=== PATIENT | female | born 1955 | race American Indian/Alaskan Native ===

== ENCOUNTER 2022-09-23 13:32 | Outpatient (CLI) | payer MEDICARE, SELFPAY ==
--- NOTE | 2022-09-23 13:30 | DI.RAD_ITS ---
Exam(s) XR KNEE RT 3V AP,LAT,YUSUF EXAM: XR KNEE RT 3V AP,LAT,YUSUF CLINICAL HISTORY: Rt knee pain, M25.561, suspect OA. TECHNIQUE: 2D digital imaging was performed. Three views. COMPARISON: No exams were available for comparison FINDINGS: There is severe narrowing of the lateral femoral tibial joint space and prominent periarticular spurr ing, sclerosis and subchondral cyst formation. There is mild valgus angulation. Degenerative change s are also noted to a lesser extent at the patellofemoral joint. IMPRESSION: Severe degenerative changes lateral femoral tibial joint. DATA REPOSITORY: RADIATION DOSE DELIVERED:
--- NOTE | 2022-09-23 13:30 | DI.RAD_ITS ---
Exam(s) XR KNEE LT 3V AP,LAT,YUSUF EXAM: XR KNEE LT 3V AP,LAT,YUSUF CLINICAL HISTORY: Lt knee pain, M25.562, suspect OA. TECHNIQUE: 2D digital imaging was performed. Three views. COMPARISON: CR XR KNEE RT 3V AP,LAT,YUSUF from 09/23/2022 FINDINGS: There are severe degenerative changes of the medial femoral tibial joint space. There is obliteratio n of the joint space, prominent periarticular spurring, sclerosis as well as flattening of the medial femoral condyle and medial tibial plateau. This is a stable benign appearing smoothly marginated cassie ny density at the medial aspect of the joint. There is varus angulation. Spurring is also noted at the lateral femoral tibial joint which shows compensatory widening. There is also spurring at the pa tellofemoral joint. There is a smoothly marginated peripherally calcified rounded lesion in the dist al femoral meta diaphysis. Findings could represent an old healed fibrous cortical defect however th ey to the appearance is not typical. Further evaluation with CT and/or MRI may be helpful for furthe r evaluation. IMPRESSION: Severe degenerative changes of the medial femoral tibial joint. Circumscribed peripherally calcified lesion in the distal femoral metadiaphysis. Recommend further e valuation with MRI and/or CT. Unexpected findings DATA REPOSITORY: RADIATION DOSE DELIVERED:
--- NOTE | 2022-09-23 13:30 | DI.RAD_ITS ---
Exam(s) XR HIP PELVIS ADULT BL EXAM: XR HIP PELVIS ADULT BL CLINICAL HISTORY: Rt hip pain, M25.551, Lt hip pain, M25.552, suspect OA. TECHNIQUE: 2D digital imaging was performed. Three views. COMPARISON: CR LUMBAR SPINE COMPLETE from 09/08/2016 FINDINGS: BONES: No acute fracture is present. No bony destructive lesion is seen. JOINTS: No dislocation present. Mild joint space narrowing and mild periarticular spurring of the rig ht hip. Moderate joint space narrowing of the left hip with mild to moderate periarticular spurring. Degenerative changes also noted in the SI joints and lower lumbar spine. SOFT TISSUE: Normal. IMPRESSION: Degenerative changes of both hips, left greater than right. DATA REPOSITORY: RADIATION DOSE DELIVERED:
== END 2022-09-23 13:52 ==
LOC: DI 13:32
PROVIDERS: PCP Nurse Practitioner Adult Health; Visit Provider Nurse Practitioner Adult Health
DX: M25.551 Pain in right hip (principal); M25.552 Pain in left hip; M25.561 Pain in right knee; M25.562 Pain in left knee; M17.0 Bilateral primary osteoarthritis of knee; M25.862 Other specified joint disorders, left knee; M16.0 Bilateral primary osteoarthritis of hip
CPT/HCPCS: 73521; 73562

== ENCOUNTER 2022-10-11 00:32 | Outpatient (CLI) | payer MEDICARE, SELFPAY ==
--- NOTE | 2022-10-11 10:15 | DI.NM_ITS ---
Exam(s) NM BONE SCAN WHOLE BODY GRP EXAM: NM BONE SCAN WHOLE BODY GRP CLINICAL HISTORY: ? bony lesion,abnl xry of knee,r93.6. TECHNIQUE: Injected Dose: 25 mCi Tc-99m MDP Delayed Images: 2-3 hours. COMPARISON: CR XR KNEE RT 3V AP,LAT,YUSUF from 09/23/2022 CR XR KNEE LT 3V AP,LAT,YUSUF from 09/23/2022 CR XR HIP PELVIS ADULT BL from 09/23/2022 FINDINGS: Symmetric axial uptake. Bilateral renal excretion is identified. Focus of increased activity noted in the medial distal femoral metaphysis. This corresponds to the m ostly sclerotic lesion seen on plain films. Markedly increased activity seen in the medial femoral tibial joint space of the left knee and latera l femoral tibial joint space of the right knee consistent with degenerative changes noted on recent p pam films. Other areas of increased activity seen in both ankles, likely secondary to degenerative changes. Mil dly increased activity is noted at the region of the superior acetabula, also likely reflecting degen erative change. Scoliosis is noted in the lumbar spine. Focus of increased activity noted at the 1s t carpal metacarpal joint of the left hand. IMPRESSION: 1. Sclerotic lesion on x-ray shows increased radiotracer uptake on bone scan. 2. Multiple sites of degenerative change, greatest in both knees. DATA REPOSITORY:
== END 2022-10-11 00:52 ==
LOC: DI 00:32
PROVIDERS: PCP Nurse Practitioner Adult Health; Visit Provider Nurse Practitioner Adult Health
DX: R93.6 Abnormal findings on diagnostic imaging of limbs (principal)
CPT/HCPCS: 78306

== ENCOUNTER 2022-10-22 01:50 | Outpatient (CLI) | payer MEDICARE, SELFPAY ==
--- NOTE | 2022-10-22 08:00 | DI.MRI_ITS ---
Exam(s) MR LOWER JOINT LT WO/W EXAM: MR LOWER JOINT LT WO/W CLINICAL HISTORY: ? bony lesion,F/U ABNL XRAY OF KNEE, R93.5. TECHNIQUE: Multiplanar multisequence MRI was performed. CONTRAST MATERIAL: IV Contrast: 19 mL of Dotarem contrast administered. COMPARISON: CR XR KNEE LT 3V AP,LAT,YUSUF from 09/23/2022 FINDINGS: BONES: There is a well-circumscribed lesion in the distal metaphysis of the femur measuring 4.8 cm lo ng by 1.4 cm transverse. It is hypointense on T1 and hyperintense on T2 weighted images. There is a thin border which is hypointense on all pulse sequences. There is no associated soft tissue mass or cortical disruption. There is some enhancement following contrast administration. The marrow signa l is otherwise unremarkable. JOINTS: There are degenerative changes seen involving all 3 joint compartments with varying degrees o f joint space narrowing, cartilage loss and bony hypertrophy. The findings are most marked in the me dial femoral tibial joint space. There is a small joint effusion. TENDONS: Extensor mechanism: Unremarkable. Medial retinaculum: Unremarkable. Lateral retinaculum: Unremarkable. Popliteus: Unremarkable. MUSCLES: Unremarkable. MENISCI: There is marked degeneration and/or tear of the body and posterior horn of the medial menisc us. The lateral meniscus is unremarkable. SOFT TISSUES: There is a 2.4 x 3.7 x 7.8 cm popliteal cyst. LIGAMENTS: Anterior Cruciate: The anterior cruciate ligament is absent consistent with a tear. This may be information director matthew. Posterior Cruciate: Unremarkable. Medial Collateral:Unremarkable. Lateral Collateral: Unremarkable. OTHER: IMPRESSION: 1. Eccentric distal femoral metaphyseal lesion as described above. The findings on the MRI in additi on to the findings on the x-ray suggest a benign process such as a fibrous cortical defect. There is no soft tissue mass or cortical disruption seen. 2. This was not a dedicated knee examination, however findings are seen at include marked degenerativ e changes of the knee, ACL tear which may be chronic and marked degeneration and/or tear of the body and posterior horn of the medial meniscus. If further imaging of the knee is warranted, a dedicated MRI of the knee may be obtained. DATA REPOSITORY:
[2022-10-22 13:02] LABS: Anion Gap 8.1 mmol/L (3-11); BUN 15 mg/dL (7-18); CO2 27.9 mmol/L (21.0-32.0); Calcium 9.5 mg/dL (8.5-10.1); Calculated LDL 117 mg/dL (<100); Chloride 103 mmol/L (98-107); Cholesterol 220 mg/dL (<200); Estimated GFR 61.36 (mL/min/1.73m2); Glucose 101 mg/dL (74-106); HDL Cholesterol 81 mg/dL (40-60); Potassium 4.4 mmol/L (3.5-5.1); Sodium 139 mmol/L (136-145); Triglyceride 110 mg/dL (<150)
[2022-10-22] MEDS: Normal Saline Flush 10 ML SYR IVP (13:52)
[2022-10-22] MEDS: Gadoterate meglumine 20 ML SYRINGE IVP (13:53)
== END 2022-10-22 02:10 ==
LOC: DI 01:50
PROVIDERS: PCP Nurse Practitioner Adult Health; Visit Provider Nurse Practitioner Adult Health
DX: Z13.1 Encounter for screening for diabetes mellitus (principal); Z13.220 Encounter for screening for lipoid disorders; R93.6 Abnormal findings on diagnostic imaging of limbs
CPT/HCPCS: 80048; 80061; 73723

== ENCOUNTER → 2022-11-14 11:09 | Outpatient (BNVA) | payer MEDICARE, SELFPAY | PROVIDERS: PCP Nurse Practitioner Adult Health; Referring Provider Nurse Practitioner Adult Health | DX: M17.12 Unilateral primary osteoarthritis, left knee (principal); M17.11 Unilateral primary osteoarthritis, right knee | CPT/HCPCS: 20610; 99203; J1040 ==

== ENCOUNTER 2023-01-06 13:42 | Outpatient (CLI) | payer MEDICARE, SELFPAY ==
--- NOTE | 2023-01-06 13:15 | DI.RAD_ITS ---
Exam(s) XR STANDING ALIGNMENT EXAM: XR STANDING ALIGNMENT CLINICAL HISTORY: bilateral knee pain. TECHNIQUE: 2D digital imaging was performed. COMPARISON: CR XR KNEE LT 3V AP,LAT,YUSUF from 09/23/2022 FINDINGS: There is [id number] narrowing of the medial compartment of the left knee again noted as well as an osteophytic density chest extrinsic to the outer aspect of the medial joint space at this level. Previously described relatively well-circumscribed bone lesion in the distal diaphysis of the left fe mur is unchanged. No cortical breakthrough evident on these images at this level. Advanced [id number] narrowing of the lateral compartment of the opposite-right knee is again noted. Moderate degenerative changes in both hips is noted. Mild findings in the ankle is noted. IMPRESSION: As above. Stable appearance. DATA REPOSITORY: RADIATION DOSE DELIVERED:
--- NOTE | 2023-01-06 13:15 | DI.RAD_ITS ---
Exam(s) XR KNEE LT 1V EXAM: XR KNEE LT 1V CLINICAL HISTORY: bilateral knee pain. TECHNIQUE: 2D digital imaging was performed. COMPARISON: CR XR KNEE LT 3V AP,LAT,YUSUF from 09/23/2022 FINDINGS: Single lateral view There are degenerative advanced degenerative changes-narrowing of the medial compartment and patellof emoral compartment. Appearance of previously described peripherally sclerotic non expansile bone lesion in the distal lef t femur is unchanged. IMPRESSION: As above. DATA REPOSITORY: RADIATION DOSE DELIVERED:
--- NOTE | 2023-01-06 13:15 | DI.RAD_ITS ---
Exam(s) XR KNEE RT 1V EXAM: XR KNEE RT 1V CLINICAL HISTORY: bilateral knee pain. TECHNIQUE: 2D digital imaging was performed. COMPARISON: CR XR STANDING ALIGNMENT from 01/06/2023 CR XR KNEE LT 1V from 01/06/2023 FINDINGS: Single lateral view right knee. Advanced narrowing of the lateral compartment evident. Also significant narrowing of the patellofemo ral compartment. IMPRESSION: As above. DATA REPOSITORY: RADIATION DOSE DELIVERED:
== END 2023-01-06 13:43 | disposition home or self-care (01) ==
LOC: DIORS 13:42
PROVIDERS: PCP Nurse Practitioner Adult Health; Referring Provider Nurse Practitioner Adult Health; Visit Provider Student in an Organized Health Care Education/Training Program
DX: M17.11 Unilateral primary osteoarthritis, right knee; M17.12 Unilateral primary osteoarthritis, left knee; I10 Essential (primary) hypertension; Z68.41 Body mass index [BMI] 40.0-44.9, adult
CPT/HCPCS: 99213; 73560; 77073

== ENCOUNTER 2023-02-06 02:34 | Outpatient (CLI) | payer MEDICARE, SELFPAY ==
[2023-02-06 09:36] LABS: Anion Gap 10.5 mmol/L (3-11); BUN 16 mg/dL (7-18); CO2 24.5 mmol/L (21.0-32.0); CREATININE 1.1 mg/dL (0.55-1.02); Calcium 9.3 mg/dL (8.5-10.1); Chloride 107 mmol/L (98-107); Estimated GFR 54.73 (mL/min/1.73m2); Glucose 97 mg/dL (74-106); Potassium 4.4 mmol/L (3.5-5.1); Sodium 142 mmol/L (136-145)
== END 2023-02-06 02:35 | disposition home or self-care (01) ==
LOC: LBO 02:34
PROVIDERS: PCP Nurse Practitioner Adult Health; Referring Provider Nurse Practitioner Adult Health; Visit Provider Nurse Practitioner Adult Health
DX: I10 Essential (primary) hypertension (principal)
CPT/HCPCS: 36415; 80048

== ENCOUNTER 2023-02-27 02:21 | Outpatient (CLI) | payer MEDICARE, SELFPAY ==
[2023-02-27 15:19] LABS: HCT 39.3 % (36.0-46.0); HGB 13.2 g/dL (11.2-15.7); MCH 30.3 pg (27.0-33.0); MCHC 33.6 % (32.0-36.0); MCV 90 fL (80-95); MPV 10.3 fL (8.0-11.0); Platelet Count 288 10^3/uL (130-400); RBC 4.35 10^6/uL (3.93-5.22); RDW 12.9 % (11.7-14.6); RDW-SD 42.9 fL; WBC 6.26 10^3/uL (4.4-10.8)
[2023-02-27 15:35] LABS: Anion Gap 12.7 mmol/L (3-11); BUN 19 mg/dL (7-18); CO2 22.3 mmol/L (21.0-32.0); Calcium 9.6 mg/dL (8.5-10.1); Chloride 104 mmol/L (98-107); Estimated GFR 61.36 (mL/min/1.73m2); Glucose 109 mg/dL (74-106); Potassium 3.8 mmol/L (3.5-5.1); Sodium 139 mmol/L (136-145)
== END 2023-02-27 02:22 | disposition home or self-care (01) ==
LOC: LBO 02:21
PROVIDERS: PCP Nurse Practitioner Adult Health; Visit Provider Student in an Organized Health Care Education/Training Program
DX: M25.561 Pain in right knee (principal); M25.562 Pain in left knee; M17.0 Bilateral primary osteoarthritis of knee; Z01.818 Encounter for other preprocedural examination; Z01.812 Encounter for preprocedural laboratory examination
CPT/HCPCS: 36415; 80048; 85027

== ENCOUNTER 2023-03-04 14:39 | Observation (INO) | payer MEDICARE, SELFPAY ==
[2023-03-04] VITALS (14 sets, daily range): BP systolic 121–182; BP diastolic 72–96; PULSE 57–85; RESP 10–20; TEMP 36.1–36.6; TEMPC 36.1; O2SAT 94–98; BMI 40.7
--- NOTE | 2023-03-04 06:47 | W.ANESPRE ---
General Info Date of Service Date Performed: 03/04/23 Height: 5 ft 3 in Weight: 104.326 kg Body Mass Index (BMI): 40.7 Surgical Procedure: Operation Date: 03/04/23 10:20 Proposed Procedure Side Surgeon p Knee Total Arthroplasty Bilateral w/OrthAlign, Cementless CR Bilateral Cong Almanzar MD Meds Allergies and Home Medications Allergies Allergy/AdvReac Type Severity Reaction Status Date / Time meloxicam AdvReac Other (See Verified 03/04/23 07:54 Comment) Hay Fever Allergy Intermediate Watery Uncoded 03/04/23 07:54 eyes, runny nose Home Medication Medication Instructions Recorded irbesartan 150 mg tablet 150 mg PO DAILY #90 tabs 12/16/22 acetaminophen 500 mg tablet 1,000 mg PO Q8H PRN pain #90 tabs 03/04/23 aspirin 81 mg tablet,delayed 81 mg PO BID 30 days #60 tabs 03/04/23 release celecoxib 200 mg capsule (Celebrex) 200 mg PO BID PRN #60 caps 03/04/23 dexamethasone 4 mg tablet 4 mg PO DAILY #2 tabs 03/04/23 docusate sodium 100 mg capsule 100 mg PO BID #30 caps 03/04/23 (Colace) gabapentin 300 mg capsule 300 mg PO QHS #14 caps 03/04/23 oxycodone 5 mg tablet 5 mg PO Q4H PRN #18 tabs 03/04/23 pantoprazole 40 mg tablet,delayed 40 mg PO DAILY #14 tabs 03/04/23 release Current Visit Medications: Current Medications Generic Name Dose Route Start Last Admin Trade Name Freq PRN Reason Stop Dose Admin Acetaminophen 1,000 mg 03/04/23 06:00 Acetaminophen 500 Mg Tab PO 03/04/23 16:00 PREOP RUBEN Celecoxib 400 mg 03/04/23 06:00 Celecoxib 200 Mg Cap PO 03/04/23 16:00 PREOP RUBEN Gabapentin 300 mg 03/04/23 06:00 Gabapentin 300 Mg Cap PO 03/04/23 16:00 PREOP RUBEN Ringer's Solution 1,000 mls @ 80 mls/hr 03/04/23 06:00 IV 03/04/23 23:59 INFUSION RUBEN Cefazolin Sodium/Dextrose 2 gm in 50 mls @ 100 mls/hr 03/04/23 06:00 Ancef Duplex IVPB 03/04/23 23:59 PREOP RUBEN Tranexamic Acid 1,000 mg/ 60 mls @ 360 mls/hr 03/04/23 06:00 Sodium Chloride IVPB 03/04/23 16:00 PREOP RUBEN Tranexamic Acid 1,000 mg/ 60 mls @ 360 mls/hr 03/04/23 06:00 Sodium Chloride IVPB 03/04/23 16:00 DIRECTED RUBEN IV Miscellaneous Supplies 1 each 03/04/23 06:00 Iv Access IV 03/04/23 23:59 DIRECTED RUBEN Sodium Chloride 0 ml 03/04/23 06:00 Normal Saline Flush 10 Ml Syr IV 03/04/23 23:59 PRN PRN Sodium Chloride 0 ml 03/04/23 06:00 Normal Saline 10 Ml Vial IJ 03/04/23 23:59 DIRECTED PRN Sterile Water 0 ml 03/04/23 06:00 Water,Injection,Sterile 10 Ml Vial IJ 03/04/23 23:59 DIRECTED PRN PFSH Active Problems Active Problems: Problem Status Onset Code Elevated serum creatinine ~12/2022 R79.89 Hypertension ~11/2022 I10 Tears of meniscus and ACL of left knee ~09/2022 S83.207A, S83.512A Tear of medial meniscus of left knee ~09/2022 S83.242A Arthritis of knee, right ~08/2022 M17.11 Arthritis of knee, left ~08/2022 M17.12 [facility] arthritis M19.049 Bilateral hip pain M25.551, M25.552 Medical History Medical History Elevated BP without diagnosis of hypertension Surgical History Surgical History (Updated 03/04/23 @ 07:57 by Karrie Galdamez RN) Hx of dilation and curettage Tobacco Smoking/Tobacco Use Status: Never Passive smoking exposure: No Alcohol Alcohol Intake: current Alcohol intake frequency: a few times a month Substance Use Substance use: Never Substance use type: does not use Vital Signs and Lab Results Vital Signs Most Recent Vital Signs in EMR: Temp Pulse Resp BP Pulse Ox 36.5 C 62 18 182/96 H 97 03/04/23 07:40 03/04/23 07:40 03/04/23 07:40 03/04/23 07:40 03/04/23 07:40 Lab Results Blood Type / Crossmatch: No Data to Display Complete Blood Count: White Blood Count 6.26 10^3/uL (4.4-10.8) 02/27/23 15:10 Red Blood Count 4.35 10^6/uL (3.93-5.22) 02/27/23 15:10 Hemoglobin 13.2 g/dL (11.2-15.7) 02/27/23 15:10 Hematocrit 39.3 % (36.0-46.0) 02/27/23 15:10 Platelet Count 288 10^3/uL (130-400) 02/27/23 15:10 Complete Metabolic Panel: Sodium 139 mmol/L (136-145) 02/27/23 15:10 Potassium 3.8 mmol/L (3.5-5.1) 02/27/23 15:10 Chloride 104 mmol/L (98-107) 02/27/23 15:10 Carbon Dioxide 22.3 mmol/L (21.0-32.0) 02/27/23 15:10 BUN 19 mg/dL (7-18) H 02/27/23 15:10 Creatinine 1.0 mg/dL (0.55-1.02) 02/27/23 15:10 Est GFR (CKD-EPI 2020) 61.36 (mL/min/1.73m2) 02/27/23 15:10 Calcium 9.6 mg/dL (8.5-10.1) 02/27/23 15:10 Glucose 109 mg/dL (74-106) H 02/27/23 15:10 Liver Function Panel: No Data to Display Coagulation Panel: No Data to Display Cardiac Panel: No Data to Display Arterial Blood Gas: No Data to Display Venous Blood Gas: No Data to Display Pancreas Panel: No Data to Display Thyroid Panel: No Data to Display Infectious Disease: No Data to Display Blood Cultures: No Data to Display Toxicology Panel: No Data to Display Anesthesia Assessment and Plan Anesthesia History Personal History: No History of Anesthesia Complications Family History: No Family History of Anesthesia Complications Exercise Tolerance Exercise Tolerance: Metabolic Equivalents>4 Cardiac & Pulmonary Exam Cardiac Exam: Normal S1/S2 Heart Sounds Pulmonary Exam: Clear Bilateral Breath Sounds Implantable Cardiac Device Does patient have a Pacemaker or an ICD?: No Airway Exam Known Difficult Airway: No Mallampati Class: 3 Mouth Opening: Normal (> 3cm) Thyromental Distance: Greater than 3 cm Neck Range of Motion: Full ROM Neck Circumference: Thick Teeth Condition: Removable Dentures/Plates Upper and Removable Dentures/Plates Lower ASA Classification ASA Score: ASA 3 Emergency Case?: No NPO Status NPO Status: NPO Clears >2 hours, Solids >8 hours Anesthesia Plan Resuscitation Status: Full Code Anesthesia Technique: Spinal Anesthesia Airway Planned: Natural Airway Pain Management: Surgeon and patient request nerve block Monitors Used: Standard Monitors Preoperative Comments:: 67 yo female for bilateral TKA. Sig PMHx: HTN (ibesartan), never smoker, occ EtOH, denies any major.
[2023-03-04] MEDS: Acetaminophen 500 MG TAB 1000 MG PO ×3 (08:00→19:46)
[2023-03-04] MEDS: Gabapentin 300 MG CAP PO ×2 (08:01→21:59)
[2023-03-04] MEDS: Lactated Ringers 1,000 ML 80 ML IV (08:21)
--- NOTE | 2023-03-04 09:46 | W.ANESNERVE ---
Nerve Block Single Injection Procedure Date and Time Date Performed: 03/04/23 Procedure Start: 09:32 Location Where Procedure Performed Procedure Location: Day Surgery Unit Reason Performed: Postoperative Analgesia Requesting Provider: Cong Almanzar Timeout Performed Timeout Performed: Yes Monitoring Used ECG, Blood Pressure and SpO2 Sterility Sterility: Hand Hygiene, Surgical Cap, Surgical Mask, Sterile Gloves and Chlorhexidine Sedation Given During Procedure Sedation Given (Indicate Dose Given): Versed IV Dose:: 2.5 mg Patient Mental Status Patient Mental Status: Sedate with meaningful communication Nerve Block 1st Nerve Block: Laterality: Bilateral Block Type: Adductor Canal Ultrasound Image Saved?: Yes Needle / Catheter Used: 120mm SonoPlex II Local Anesthetic Bolus (Indicate Dose Given): Lidocaine used for local infiltration of skin, Injected in 3-5ml increments after negative blood aspiration, Half of Total block solution given into each side and Bupivacaine 0.25% Dose:: 20 mL Additives (Indicate Dose Given): Epinephrine to make 1:400,000 (2.5mcg/ml) Dose:: 50 mcg Ultrasound: Sterile probe cover and gel used Nerve Stimulator: Supplement to Ultrasound use and No twitch or parasthesia noted < 0.5 mA Paresthesia: None Procedure Tolerated: No Complications Procedure Outcome: Successful Performed By: Osmar Orellana
[2023-03-04] MEDS: ceFAZolin 2 GM/50 ML BAG IVPB (10:11)
--- NOTE | 2023-03-04 12:25 | SUR.PREOP ---
03/04/23 08:00am Pre-op Celebrex 400mg withheld as MAR indicated that there could be a reaction due to pt's Meloxicam allergy and to override medication if intended to give. Webex note sent to Dr. Almanzar to inform him that celebrex withheld. Pamela REHMAN followed charting protocol in the MAR to chart that the med was not given however the MAR would not allow for a not given note to be made. [facility] ([facility] called and made aware. Pharmacy unable to document not given and advised that a ticket be opened with IS. Yashira Harmon multimedia project manager DSU and Cinthia NIELSEN DSU aware.
--- NOTE | 2023-03-04 13:14 | W.PM.OP ---
Date of service: 03/04/23 Time of Service: 13:14 Operative Note Operative Note DATE OF PROCEDURE: 03/04/23 PRE-OP DIAGNOSIS: Bilateral Knee Osteoarthritis POST-OP DIAGNOSIS: same PROCEDURE: Bilateral Total Knee Replacement with Intraoperative Navigation SURGEON: Cong Almanzar MAGNETIC PROSPECTING SUPERVISOR: Christie Craig ANESTHESIA TYPE: Spinal Refer to Anesthesia Record ESTIMATED BLOOD LOSS: 300 PATHOLOGY: none sent TOURNIQUET TIME: 0 COMPLICATIONS: None Patient was transported to: PACU Patient's condition: stable Implants: RIGHT: 1. Depuy Attune Cementless Cruciate Retaining Femoral Component, Size 6 2. Depuy Attune Cementless Fixed Bearing Tibial Component, Size 6 3. Depuy Attune 6x7 CR/FB Poly 4. Depuy Attune Patellar Component, Size 35 LEFT: 1. Depuy Attune Cementless Cruciate Retaining Femoral Component, Size 6 2. Depuy Attune Cementless Fixed Bearing Tibial Component, Size 5 3. Depuy Attune 6x10 CR/FB Poly 4. Depuy Attune Patellar Component, Size 35 Indications: I have seen Yas in clinic for symptoms of bilateral knee arthritis, confirmed with radiographic findings. Yas has exhausted nonoperative methods and was having significant limitations in daily function and desired better function and less pain. I discussed the technical details of a knee replacement. I explained the risks of the procedure to include, but not limited to, bleeding, infection, pain, stiffness, fracture, damage to nerves and vessels, damage to muscles and tendons, loosening, need for repeat procedure, blood clot and cardiopulmonary demise. Despite these risks, he elected to proceed. Findings: There was significant signs of arthritis througout both knees. The left knee had a primary varus deformity with medial involvement mostly and the right knee had primary lateral invovlement, although all 3 compartments were involved in both knees. Procedure Description: Yas was greeted in the preoperative holding area where the correct side was identified and marked. The consent was reviewed with the patient and signed. The history and physical was updated. All questions were answered. Preoperative medications were administered: Acetaminophen 1000mg and Gabapentin 300mg. An adductor canal block was then administered by the anesthesia team in the PACU. Yas was taken back to the operating room. A spinal anesthestic was then administered. The patient was placed into the supine position on the operating room table. A nonsterile tourniquet was placed high onto the leg. Posts were placed for positioning during the procedure. All bony prominences were well padded. Prophylactic antibiotics in the form of Cefazolin were administered. 1g of Tranxemic Acid was given intravenously within 30 minutes of incision. Both legs were then prepped with Chloraprep and draped in a standard fashion with impervious stockinette. A second prep with Chloraprep was performed prior to application of Iodine impregnated skin protection on the left knee; the right knee was kept covered with the stockinette until incision. A timeout to confirm correct identity, side and site, procedure, allergies, anesthesia, and medical concerns was performed. LEFT KNEE: With the knee in some flexion, a midline incision was made overlying the knee. Full thickness skin flaps were raised once the extensor mechanism was encountered. These were raised medially and laterally. Any bleeding was controlled with electrocautery. Once the extensor mechanism was fully exposed, a medial parapatellar arthrotomy was performed in a flexed position. All bleeding from the arthrotomy and the geniculate arteries was coagulated. A medial subperiosteal peel was performed with electrocautery to the midcoronal plane. Due to the significant varus deformity the entire medial tibial plateau was exposed. The fat pad was removed while keeping the patellar tendon protected. The anterior distal femur synovium was removed for later visualization. The ACL and PCL were resected and the anterior horn of the lateral meniscus was transected. The knee was then flexed with the patella everted. Large osteophytes from the tibia were removed. Large osteophytes from the femur were removed. A single starting pin was then placed 1cm anterior to the PCL insertion and the notch in the direction of the femoral head. The OrthoAlign device was applied over the pin. It was oriented to be in line with the epicondylar axis and the trochlear groove. It was then pinned into place. The navigation computer was then turned on and calibrated. The distal femur cut was set at 1 degrees varus and 3.5 degrees flexion. The distal femur cutting guide then was positioned for a 9mm cut. The distal femur was cut with an oscillating saw while protecting the soft tissues. The tibia was then addressed. The OrthoAlign device was placed over the tibial tubercle and medial tibia and secured into position. Once again, OrthoAlign was calibrated and then set for a 2 degree varus cut and 5 degrees of posterior slope. With this locked into position, the cut thickness stylus was used to assess cut thickness. The medial side, most involved side, was set for a 3mm cut. This was then held in position and pinned into place with 2 additional pins and a cross pin for stability. The medial and lateral collateral ligaments were protected and the cut was performed. With this completed, it was assessed and noted to be of appropriate dimensions. The guide and OrthoAlign was removed. A spacer block was inserted and the knee was brought into extension to ensure enough space was present. . The Orthoalign gap balancing device was then placed in extension. This was used to ensure that the ligaments were properly balanced with up to 2 to 3 mm laxity laterally compared medially. The extension gap was measured as 21mm. The knee was then brought into 90 degrees of flexion and the ligament visual education director was once again placed. Under the same amount of force the flexion gap was measured. The Attune specific jig was placed and the flexion gap was made to match the extension gap. The femur was then sized as a size 6. The 4-in-1 cutting guide was the placed. An nadiya wing was used to confirm appropriate position of the anterior cut to avoid notching. This cutting guide was ensured to be flush on the cut surface and then pinned into place with headed pins. While protecting the soft tissues, quad tendon, and collateral ligaments, the anterior and posterior cuts were performed with a saw. The central two pins were removed and the posterior and anterior chamfers were cut next. The notch-cutting guide was placed. This was pinned to lateralize the femoral component as much as possible while keeping it flush on the cut surface. This was then pinned into position. A saw was used to make the notch cut. A rasp smoothed the cut surfaces. The medial and lateral menisci were removed. A trial femoral component was then inserted, impacted down to the cut surfaces, and the lug holes were drilled. A provisional trial tibial component was placed and the knee was brought through range of motion. There was noted to be excellent extension and flexion. There was no significant instability. The patella was tracking without thumbs. A size 10mm polyethylene component provided the best range of motion and stability with less than 2mm gapping with medial and lateral stress and full extension without significant hyperextension. The tibial cut surface was fully exposed. The tibia was then sized as a 5. The tibia had been previously marked during trialing to correspond to the center of the tibial component to help with rotation. The trial was aligned to this alysia, approximately rotated to the medial 1/3rd of the tibial tubercle. The trial was pinned into place. The tibia was prepared with a reamer and a keel punch and lug holes. The knee was then brought into extension and the patella was measured as 22mm. Using the patellar clamp and cut guide, this was resected to a flat surface with at least 13mm of thickness remaining. The size 35 patella fit the best. This was oriented and then clamped into position. The lugs were drilled. The trial components were removed. The final components were opened on the back table. The periosteal and capsular tissues, especially posteriorly, around the knee were then systematically injected with 50cc of a periarticular cocktail consisting of 246mg of Ropivacaine, 0.5mg of Epinephrine, 0.08mg of Clonidine, and 30mg of Ketorolac, diluted to 100cc. On the back table, with the implants opened, the cement was mixed. One batch of high viscosity cement was prepared with vacuum assistance. After the cement was ready a small amount was placed on the cut surface of the patella and the patellar button was clamped into position and held. While the cement was hardening, the cementless knee components were placed. Starting with the tibial component, the tibia was subluxed anteriorly and the lug holes of the component were lined up. The tibia was then impacted with an impactor and mallet until the tibial component was in contact with the tibia. Then, the femoral component was inserted. The lug holes were aligned and the component was impacted into position. The final polyethylene component was inserted. The knee was irrigated with Surgiphor Betadine solution. This was allowed to sit in the knee for 3 minutes and then it was thoroughly irrigated out with saline. After the cement had finally cured, approximately 15min, the clamp was removed from the patella and the knee was taken through range of motion. The patella was tracking with a no-thumbs technique. The capsule was then reapproximated with a No. 1 Vicryl at multiple locations. The capsule was finally closed with a No. 2 Stratafix, barbed suture. The second dosing of 1g TXA was started. Deep tissues were then reapproximated with 0 Vicryl and 2-0 Vicryl. The skin was closed with a running 3-0 Monocryl in a subcuticular fashion. This was reinforced with skin glue. RIGHT KNEE Moving on to the right knee, a midline incision was made overlying the knee. Full thickness skin flaps were raised once the extensor mechanism was encountered. These were raised medially and laterally. Any bleeding was controlled with electrocautery. Once the extensor mechanism was fully exposed, a medial parapatellar arthrotomy was performed in a flexed position. All bleeding from the arthrotomy and the geniculate arteries was coagulated. A medial subperiosteal peel was performed with electrocautery to the midcoronal plane. The fat pad was removed while keeping the patellar tendon protected. The anterior distal femur synovium was removed for later visualization. The ACL and PCL were resected and the anterior horn of the lateral meniscus was transected. The knee was then flexed with the patella everted. Large osteophytes from the tibia were removed. Large osteophytes from the femur were removed. There was some hypoplasia of the lateral femoral condyle and any remnant cartilage of the medial femoral condyle was removed for appropriate thickness. A single starting pin was then placed 1cm anterior to the PCL insertion and the notch in the direction of the femoral head. The OrthoAlign device was applied over the pin. It was oriented to be in line with the epicondylar axis and the trochlear groove. It was then pinned into place. The navigation computer was then turned on and calibrated. The distal femur cut was set at 0 degrees varus and 3.5 degrees flexion. The distal femur cutting guide then was positioned for a 7mm cut. The distal femur was cut with an oscillating saw while protecting the soft tissues. The tibia was then addressed. The OrthoAlign device was placed over the tibial tubercle and medial tibia and secured into position. Once again, OrthoAlign was calibrated and then set for a 0 degree varus cut and 5 degrees of posterior slope. With this locked into position, the cut thickness stylus was used to assess cut thickness. The lateral side, most involved side, was set for a 2mm cut. This was then held in position and pinned into place with 2 additional pins and a cross pin for stability. The medial and lateral collateral ligaments were protected and the cut was performed. With this completed, it was assessed and noted to be of appropriate dimensions. The guide and OrthoAlign was removed. A spacer block was inserted and the knee was brought into extension to ensure enough space was present. . The Orthoalign gap balancing device was then placed in extension. This was used to ensure that the ligaments were properly balanced with up to 2 to 3 mm laxity laterally compared medially. The extension gap was measured as 18mm. The knee was then brought into 90 degrees of flexion and the ligament visual education director was once again placed. Under the same amount of force the flexion gap was measured. The Attune specific jig was placed and the flexion gap was made to match the extension gap. The femur was then sized as a size 6. The 4-in-1 cutting guide was the placed. An nadiya wing was used to confirm appropriate position of the anterior cut to avoid notching. This cutting guide was ensured to be flush on the cut surface and then pinned into place with headed pins. While protecting the soft tissues, quad tendon, and collateral ligaments, the anterior and posterior cuts were performed with a saw. The central two pins were removed and the posterior and anterior chamfers were cut next. The notch-cutting guide was placed. This was pinned to lateralize the femoral component as much as possible while keeping it flush on the cut surface. This was then pinned into position. A saw was used to make the notch cut. A rasp smoothed the cut surfaces. The medial and lateral menisci were removed. A trial femoral component was then inserted, impacted down to the cut surfaces, and the lug holes were drilled. A provisional trial tibial component was placed and the knee was brought through range of motion. There was noted to be excellent extension and flexion. There was no significant instability. The patella was tracking without thumbs. A size 7mm polyethylene component provided the best range of motion and stability with less than 2mm gapping with medial and lateral stress and full extension without significant hyperextension. The tibial cut surface was fully exposed. The tibia was then sized as a 6. The tibia had been previously marked during trialing to correspond to the center of the tibial component to help with rotation. The trial was aligned to this alysia, approximately rotated to the medial 1/3rd of the tibial tubercle. The trial was pinned into place. The tibia was prepared with a reamer and a keel punch and lug holes. The knee was then brought into extension and the patella was measured as 23mm. Using the patellar clamp and cut guide, this was resected to a flat surface with at least 13mm of thickness remaining. The size 35 patella fit the best. This was oriented and then clamped into position. The lugs were drilled. The trial components were removed. The final components were opened on the back table. The periosteal and capsular tissues, especially posteriorly, around the knee were then systematically injected with the remainig 50cc of a periarticular cocktail consisting of 246mg of Ropivacaine, 0.5mg of Epinephrine, 0.08mg of Clonidine, and 30mg of Ketorolac, diluted to 100cc. On the back table, with the implants opened, the cement was mixed. One batch of high viscosity cement was prepared with vacuum assistance. After the cement was ready a small amount was placed on the cut surface of the patella and the patellar button was clamped into position and held. While the cement was hardening, the cementless knee components were placed. Starting with the tibial component, the tibia was subluxed anteriorly and the lug holes of the component were lined up. The tibia was then impacted with an impactor and mallet until the tibial component was in contact with the tibia. Then, the femoral component was inserted. The lug holes were aligned and the component was impacted into position. The final polyethylene component was inserted. The knee was irrigated with Surgiphor Betadine solution. This was allowed to sit in the knee for 3 minutes and then it was thoroughly irrigated out with saline. After the cement had finally cured, approximately 15min, the clamp was removed from the patella and the knee was taken through range of motion. The patella was tracking with a no-thumbs technique. The capsule was then reapproximated with a No. 1 Vicryl at multiple locations. The capsule was finally closed with a No. 2 Stratafix, barbed suture. Deep tissues were then reapproximated with 0 Vicryl and 2-0 Vicryl. The skin was closed with a running 3-0 Monocryl in a subcuticular fashion. This was reinforced with skin glue. A Mepilex silver dressing was applied along with a [id number] CHALINO wrap to both knees followed by a CryoCuff. Yas was transferred to the hospital bed without difficulty an suffering no apparent complication. Yas has a good prognosis. Physical therapy will start today and without restrictions, weight-bearing as tolerated. Aspirin 81mg BID will be used for DVT prophylaxis.
--- NOTE | 2023-03-04 13:50 | W.ANESPOSTOP ---
Postoperative Evaluation Date, Time and Location Date Performed: 03/04/23 Time Performed: 13:50 Patient Location: PACU Vital Signs Most Recent Imported Vital Signs: Most Recent Vital Signs Temp Pulse Resp BP Pulse Ox 36.5 C 68 10 L 180/94 H 96 03/04/23 09:40 03/04/23 09:40 03/04/23 09:40 03/04/23 09:40 03/04/23 09:40 Most Recent Manually Entered Vital Signs: Adult Blood Pressure: 122/88 Heart Rate: 85 Respirations: 15 Oxygen Saturation (%): 98 Temperature (C): 36.1 C Pain Score (0-10 Scale): 0 Pain Score Most Recent Pain Score: Most Recent Pain Score Pain Level 0 03/04/23 09:40 Assessment Mental Status: Arousable with meaningful communication Airway and Respiratory Function: Patent airway with normal (patient baseline) respiratory exam Cardiovascular Function: Hemodynamically Stable Hydration Status: Adequately Hydrated Nausea & Vomiting: No Nausea or Vomiting Pain: Other (spinal still in some effect, starting to be able to lift heals off bed) Peripheral Nerve Block: Regional nerve block not resolved at time of post operative discharge
[2023-03-04] MEDS: ceFAZolin 1 GM/50 ML BAG IVPB ×2 (15:06→21:58)
[2023-03-04] MEDS: Normal Saline Flush 10 ML SYR IV ×4 (15:06→21:59)
[2023-03-04] MEDS: oxyCODONE 5 MG TAB PO (16:12)
--- NOTE | 2023-03-04 16:42 | PT.INIE ---
Date of service: 03/04/23 Time of Service: 15:35 PT Notes Visit Reasons: Bilateral knee DJD Physical Therapy Inpatient Initial Evaluation Date: 03/04/2023 Referring Doctor: JEN Chery PT Orders: PT CONSULT: S/P Ortho surgery Precautions: Fall. Standard. WBAT on BLE with AD. Patient Profile/Admitting Diagnosis: Olga is a 67-year-old female with degenerative joint disease of both knees and is status post bilateral total knee arthroplasties on postoperative day 0. PMHX: All Active Problems?(Updated 02/10/23 @ 15:48 by Margret Sullivan NP) Elevated serum creatinine (Acute ~12/2022) Hypertension (Chronic ~11/2022) Tears of meniscus and ACL of left knee (Acute ~09/2022) Tear of medial meniscus of left knee (Acute ~09/2022) Arthritis of knee, right (Acute ~08/2022) Arthritis of knee, left (Acute ~08/2022) 80 mg corticosteroid injection 11/14/22 CMC arthritis (Acute) L (R hand dominant)Bilateral hip pain (Acute) Pain in both knees (Acute) Medical History? Elevated BP without diagnosis of hypertension Social History/Home Situation: Lives with son and grandson in a private home with 3 steps to enter with rails on both sides. Son and grandson are not available during the day but are both accessible and could come in less than 10 minutes if needed. Independent with all aspects of ADLs prior to surgery. Equipment Owned/DME: 4-wheeled walker Subjective: Reports 7/10 pain in B knees with weight-bearing. Almost teary-eyed after a short trip from bedside to the bedside recliner using the FWW. Denies lightheadedness, chest pain, and headache throughout. Concerned about her L foot turning in. Objective: General Observation: Resting in bed. CHALINO wraps to B legs. Cryocuff to B knees. IV through L UE. High BMI. Mental Status: Alert and oriented as to person, place, time, and purpose. Able to pay attention, focus, and respond appropriately. Pain: 7-8/10 in B knees Vital Signs: Closely monitored by nursing staff ROM: Right Lower Extremity: Hip flexion 0-100. Hip abduction WFL. Knee flexion 40 to 90 degrees actively. Knee extension -40 degrees actively. Ankle dorsiflexion to neutral only. Ankle plantarflexion WFL. Ankle eversion WFL. Left Lower Extremity: Hip flexion 0-100. Hip abduction WFL. Knee flexion 40 to 90 degrees actively. Knee extension -40 degrees actively. Ankle dorsiflexion to neutral only. Ankle plantarflexion WFL. Ankle eversion limited. Strength: Right Lower Extremity: Hip flexors 4-/5. Hip abductors 4-/5. Knee flexors 3-/5. Knee extensors 3-/5. Ankle dorsiflexors 3-/5. Ankle plantarflexors 4-/5. Left Lower Extremity: Hip flexors 4-/5. Hip abductors 4-/5. Knee flexors 3-/5. Knee extensors 3-/5. Ankle dorsiflexors 3-/5. Ankle plantarflexors 4-/5. Bed Mobility/Transfers: Moderate cues provided for hand placement, movement sequence, AD management, and posture for activities below: Supine to sit with minimal assist with HOB at 30 degrees Sit to stand with minimal assist with FWW Stand to sit with minimal assist with FWW Bed to reclining chair minimal assist with FWW Gait: Guided and instructed patient with limb advancement, posture, AD management, weight bearing precaution, and overall safety with level surface ambulation of 8 feet requiring minimal assist of 2. Gait antalgic. Nurse Manning ssisting for safety. Reported pain of up to 7-8/10 requested to sit down on bedside recliner. Balance: Static Sitting: Normal Dynamic Sitting: Normal Static Standing: Fair Dynamic Standing: Fair Special Tests: Mobility Limitations Standardized Measure [facility] AM-PAC 6 clicks Basic Mobility Inpatient Short Form: Raw Score: 15 CMS Score: 58% deficit Informed Consent/Education: Patient was instructed in purpose of PT consult and plan of care. Agreeable to proceed with established PT POC to achieve personal goals. Trained patient with correct performance of exercises below to maximize motor control, joint flexibility, soft tissue extensibility of B knee musculature. Supine quads sets x 5 with 5 sh Supine heels slides x 5 Supine ankle DF/PF x 10 Small range straight leg raise x 5 Seated marches x 5 ASSESSMENT: Functional mobility performance limited by pain level which was reported right away to Nurse Manning who provided patient with Oxycodone. Advised patient about the left foot turning in which may be a transient result of the nerve block. Advised patient that orthopedic surgeon will be notified about said concern. Ensure premedication for pain to maximize functional performance. Patient presents with clinical signs and symptoms consistent with current/admitting diagnoses that have resulted to mobility limitations, gait instability, generalized weakness, and overall ADL decline as demonstrated by the following impairment level findings: 1. Decreased strength to B knee major muscle groups 2. Impaired sitting/standing balance 3. Impaired activity tolerance 4. Limitation of joint range of motion in B knees 5. Pain of 7-8/10 in B knees Impairments are contributing to the following functional limitations: 1. Decline in bed mobility skills 2. Decline in transfer skills 3. Difficulty with ambulation without assistive device and physical assistance 4. Increased completion time for mobility ADL performance 5. Increased risk for falls 6. Difficulty with managing steps alone safely Patient is assessed as a 32252 moderate complexity based on the following: History: 67-year-old female with past medical history as indicated above Examination: Demonstrable impairment in strength, balance, and mobility level with underlying impairments and functional limitations as exhibited above as well as deficit score of 58% utilizing the [facility] Mobility Inpatient Short Form Presentation: Evolving Decision Makin moderate complexity Goals: Goals X1 week 1. Supine-Sit independent 2. Sit-Supine independent 3. Sit-Stand independent 4. Stand-Sit independent with FWW 5. Bed-Chair independent with FWW 6. Chair-Bed independent with FWW 7. Independent gait on level surface with use of FWW for at least 300 feet without report of pain nor dyspnea 8. Independent stair negotiation while holding onto B rails for at least 5 steps without report of pain nor dyspnea 9. Independent with home exercise program 10. Good static and dynamic standing balance/tolerance Plan of Care/Treatment Plan: 1-2x/day, 7 days/week x 1 week. Plan of care has been reviewed with the METALLURGICAL TESTER providing the service under Physical Therapy direction. Initiate Physical Therapy intervention for pain management as needed, strengthening, bed mobility, transfers, gait, stairs, balance training, and use of assistive device. DISCHARGE RECOMMENDATIONS: [] Home with no services [] [X] Home with services. Patient will benefit from home health PT services in order to progress mobility level using least restrictive assistive ambulatory device, assess home safety, identify additional equipment needs, and establish a functional maintenance program that will increase ability of patient to remain at home. [] Home with outpatient PT [] [] SNF for continued rehabilitation [] [] [facility] Manager Care [] [] SNF versus LTC based on ability to participate and progress [] TREATMENT CODE/TIME: 18263 x 20 minutes for 1 unit, 40265 x 15 for 1 unit beginning 15:35 PM. Thank you for the opportunity to participate in the care of this patient. Kasia Cedillo PT, DPT, CLT [facility] [place], [place]
[2023-03-04] MEDS: HYDROmorphone 2 MG/ML SYR 0.5 MG IVP (19:44)
[2023-03-04] MEDS: Celecoxib 200 MG CAP PO (19:46)
[2023-03-04] MEDS: Aspirin E.C. 81 MG TABEC PO (19:46)
[2023-03-04] MEDS: Ondansetron 4 MG/2 ML VIAL IVP (21:46)
[2023-03-05 00:09] VITALS: BP 117/71; PULSE 52; RESP 18; TEMP 36.2; O2SAT 98
[2023-03-05 03:52] VITALS: BP 146/75; PULSE 60; RESP 16; TEMP 36.3; O2SAT 98
[2023-03-05] MEDS: oxyCODONE 5 MG TAB PO (05:14)
[2023-03-05] MEDS: ceFAZolin 1 GM/50 ML BAG IVPB (05:15)
[2023-03-05 08:55] VITALS: BP 113/63; PULSE 56; RESP 16; TEMP 36.4; O2SAT 98
[2023-03-05] MEDS: Acetaminophen 500 MG TAB 1000 MG PO ×2 (08:56→13:49)
[2023-03-05] MEDS: Celecoxib 200 MG CAP PO (08:57)
[2023-03-05] MEDS: Irbesartan 75 MG TAB 150 MG PO (08:58)
[2023-03-05] MEDS: Dexamethasone 4 MG TAB PO (08:58)
[2023-03-05] MEDS: Aspirin E.C. 81 MG TABEC PO (08:59)
--- NOTE | 2023-03-05 12:05 | DSE_ITS ---
Date of service: 03/05/23 Time of Service: 12:04 DS: Diagnosis Discharge Diagnosis (1) Arthritis of knee, right: Status: Resolved (2) Arthritis of knee, left: Status: Resolved Discharge Plan Disposition Patient Disposition: Home Condition: Good Discharge Details Reason For Visit: Bilateral knee DJD Admit Date/Time: 03/04/23 14:39 Admit Provider: Cong Almanzar Attending Provider: Cong Almanzar Primary Care Provider: Margret Sullivan Hospital Course Hospital Course: Patient was admitted to the medical/surgical floor following the procedure. The surgery was tolerated well without any notable medical, surgical, or anesthetic complications. She did have an episode of emesis which improved. Mobilization began postoperatively. She was voiding spontaneously. Vitals were stable. Physical therapy worked with the patient and was cleared for discharge home. No acute medical issues. Pain was controlled on oral regimen. Home Meds and New Rx's Prescriptions: New celecoxib [Celebrex] 200 mg capsule 200 mg PO BID PRNQty: 60 0RF Rx Instructions: Take one tablet twice daily for pain and inflammation aspirin 81 mg tablet,delayed release (DR/EC) 81 mg PO BID 30 Days Qty: 60 0RF acetaminophen 500 mg tablet 1,000 mg PO Q8H PRN Qty: 90 0RF Rx Instructions: Take two tablets up to every 8 hours as needed for pain pantoprazole 40 mg tablet,delayed release (DR/EC) 40 mg PO DAILY Qty: 14 0RF dexamethasone 4 mg tablet 4 mg PO DAILY Qty: 2 0RF Rx Instructions: Take one tablet once daily for two days docusate sodium [Colace] 100 mg capsule 100 mg PO BID Qty: 30 0RF gabapentin 300 mg capsule 300 mg PO QHS Qty: 14 0RF Rx Instructions: Take one tablet at bedtime oxycodone 5 mg tablet 5 mg PO Q4H PRNQty: 18 0RF Rx Instructions: Take one tablet up to every 4 hours as needed for severe postoperative pain Continued irbesartan 150 mg tablet 150 mg PO DAILY Qty: 90 3RF Rx Instructions: Start with 75mg daily (1/2 tab) x6d, then increase to 150mg (1 tab) daily for goal BP <140/90 Discharge Instructions Additional Instructions: Total Knee Discharge Instructions Activity: The most important activity is to walk and to work on gentle motion (both flexion and extension). You should try to take short walks a few times a day. It is important that when resting you work on keeping the knee straight. Avoid putting a pillow behind the knee as this will encourage flexion. Work on range of motion exercises as provided by Physical Therapy. - Start outpatient physical therapy within 2 weeks. - You should wear the RO hose on both legs for 2 weeks. You may remove these at night. You may also use any compression sock in place of the RO hose. - Utilize [employer] to review exercises, see videos on exercises and obtain basic information pertaining to your surgery and your recovery. Dressing: Remove the Javier wrap by 2 days after your surgery and put on the RO stocking given to you from the hospital. Keep the surgical dressing (underneath the JAVIER wrap) in place for at least one week. After the first week it may be removed and replaced with light gauze and tape or nothing. The wound and dressing may get wet after 3 days but avoid soaking the dressing or otherwise it will need to be changed. Many people prefer covering the dressing with cling wrap (saran wrap) to minimize it from getting soaked. If it gets wet, just pat dry. If it starts to peel off then it will need to be changed. Medications: - You should take Tylenol and anti-inflammatory Celebrex as your primary pain control medications. If the Celebrex is too expensive or not covered, please call the office for another alternative (Advil/Ibuprofen or Naproxen/Aleve) - You have been prescribed a stronger pain medication Oxycodone for breakthrough pain, take as needed as prescribed. - You have also been prescribed a stomach acid reduction agent Pantoprozole to help reduce stomach acid and reflux. - You have been prescribed Gabapentin to take at night for restlessness and nerve pain. - You will be taking Aspirin 81mg twice a day for DVT prevention unless instructed otherwise. - You have also been prescribed Decadron to take to control post-operative nausea and pain. You will start this tomorrow. - If you have constipation you should take Colace (which has been prescribed) or Miralax (which is available [id number]). It takes most people 3-4 days to have a bowel movement. Follow-up: 2 weeks If you have any acute concerns or questions, please do not hesitate to contact the office at [phone]. You may contact Dr. Almanzar with any questions after hours through the hospital at [phone] or on his cell phone at [phone]. Referrals: Cong Almanzar MD [ [facility] STAFF PHYSICIAN] - 03/20/23 11:45 am Activity:: Activity as Tolerated Equipment/Supplies:: Walker Diet:: As Tolerated Discharge Orders Discharge Orders: Discharge Order (Routine); Ordered 03/05/23 Ordered By: Cong Almanzar DS: Summary Time Spent with Patient providing and/or coordinating discharge services: Less than 30 minutes Status at Discharge Functional status at discharge: uses cane/walker Overall status at discharge: patient is progressing back to baseline Mental Status: mental status grossly normal Speech and Movement: speech and movement normal Mood: congruent mood Affect: normal affect Exam Psych Mental Status: mental status grossly normal Speech and Movement: speech and movement normal Mood: congruent mood Affect: normal affect DS: Data Vitals/I&O Vitals and I&O: Intake & Output 03/03/23 03/03/23 03/04/23 11:59 23:59 11:59 Weight 230 lb PFSH All Active Problems History of total right knee replacement (Acute) History of total left knee replacement (Acute) Bilateral hip pain (Acute) CMC arthritis (Acute) L (R hand dominant) Tear of medial meniscus of left knee (Acute ~09/2022) Tears of meniscus and ACL of left knee (Acute ~09/2022) Hypertension (Chronic ~11/2022) Elevated serum creatinine (Acute ~12/2022) Medical History Elevated BP without diagnosis of hypertension Surgical History Hx of dilation and curettage Family History Mother , COPD; at 90yo Asthma Maternal Grandmother Heart disease Father Hypertension Social History Smoking/Tobacco Use Status: Never Smoking risk assessment performed?: Yes Alcohol Intake: current Alcohol Intake frequency: a few times a month Drug use: Never Substance use type: does not use Adopted: No Caregiver/Support person: No Foster care: No Household members: children and other Details: Grandchild Housing: house Number of Children: 2 number of grandchildren: 2 Communication Needs: Corrective Lenses Education Level: high school Do you need help understanding health information?: Rarely 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[employer] Pets and animals: Yes (1) Pets and animals: dog(s) Sexually active: No Do you think of yourself as: straight/heterosexual Current gender identity: female What is your relationship status?: How often do you talk on the phone with friends or family?: once per week How often do you get together with friends or relatives?: once per week Do you belong to any clubs or organized social groups?: yes Panel score (0-1 are the most socially isolated patients): 1 What type of physical activity do you participate in: walking Duration: 15-30 minutes/day Frequency: 1-2 times per week Alexandra/Jewish: Orthodoxy Special alexandra needs: No Seatbelt use: always Helmet use: Yes Helmet use: always Drive intox or ride w/intox uke driver: No Do you feel safe at home: Yes (lives with son) Do you feel safe in your relationship?: Yes Time Spent with Patient Time Spent with Patient: <45 minutes Time was spent: ordering medications,tests, procedures, indepentently interpreting results and counseling the patient
--- NOTE | 2023-03-05 13:23 | PT.INDS ---
Date of service: 03/05/23 PT Notes Visit Reasons: Bilateral knee DJD Physical Therapy Inpatient Discharge Summary Date: 03/05/2023 Dates of Service: 03/04/2023 through 03/05/2023 This is a clinical summary of care provided for the duration of dates listed above. No charge was made in the completion of this documentation. Referring Doctor: JEN Chery PT Orders: PT CONSULT: S/P Ortho surgery Precautions: Fall. Standard.? WBAT on BLE with AD. Patient Profile/Admitting Diagnosis:? Olga is a 67-year-old female with degenerative joint disease of both knees and is status post bilateral total knee arthroplasties on postoperative day 1. PMHX: All Active Problems?(Updated 02/10/23 @ 15:48 by Margret Sullivan NP) Elevated serum creatinine (Acute ~12/2022) Hypertension (Chronic ~11/2022) Tears of meniscus and ACL of left knee (Acute ~09/2022) Tear of medial meniscus of left knee (Acute ~09/2022) Arthritis of knee, right (Acute ~08/2022) Arthritis of knee, left (Acute ~08/2022) 80 mg corticosteroid injection 11/14/22 CMC arthritis (Acute) L (R hand dominant)Bilateral hip pain (Acute) Pain in both knees (Acute) Medical History? Elevated BP without diagnosis of hypertension Social History/Home Situation: Lives with son and grandson in a private home with 3 steps to enter with rails on both sides.? Son and grandson are not available during the day but are both accessible and could come in less than 10 minutes if needed.? Independent with all aspects of ADLs prior to surgery. Equipment Owned/DME: 4-wheeled walker Subjective: Reported 7-8/10 pain in the AM, 5/10 in the afternoon however was able to work through pain given adequate rest in between activities. Agreeable to using FWW for ambulation. Objective: General Observation: Seated on chair.? CHALINO wraps to B legs.? Cryocuff to B knees.? IV through L UE.? High BMI. Mental Status: Alert and oriented as to person, place, time, and purpose. Able to pay attention, focus, and respond appropriately. Pain: 7-8/10 in B knees in the AM; 4-5/10 in the PM Vital Signs: WNl as closely monitored by nursing staff ROM: Right Lower Extremity: Hip flexion 0-100. Hip abduction WFL. Knee flexion 40 to 90 degrees actively. Knee extension -40 degrees actively. Ankle dorsiflexion to neutral only. Ankle plantarflexion WFL. Ankle eversion? WFL. Left Lower Extremity: Hip flexion 0-100. Hip abduction WFL. Knee flexion 40 to 90 degrees actively. Knee extension -40 degrees actively. Ankle dorsiflexion to neutral only. Ankle plantarflexion WFL.? Ankle eversion limited. Strength: Right Lower Extremity: Hip flexors 4-/5. Hip abductors 4-/5. Knee flexors 3-/5. Knee extensors 3-/5. Ankle dorsiflexors 3-/5. Ankle plantarflexors 4-/5. Left Lower Extremity: Hip flexors 4-/5. Hip abductors 4-/5. Knee flexors 3-/5. Knee extensors 3-/5. Ankle dorsiflexors 3-/5. Ankle plantarflexors 4-/5. THERA ACT: Moderate cues provided for hand placement,? movement sequence,? AD management, and posture for bed mobility, transfers, and gait as noted below: Bed Mobility/Transfers: Sit to stand stand by assist with FWW Stand to sit stand by assist with FWW Bed to reclining chair stand by assist with FWW Gait: Guided and instructed patient with limb advancement,? posture,? AD management,? weight bearing precaution,? and overall safety with level surface ambulation of 15 feet + 100 feet + 100 feet in the AM and 15 feet + 15 feet in the PM requiring stand by assist. Gait remains mildly antalgic.?Pain level went up to 8/10 in the AM which Nurse Shanelle was updated about. Nurse Ely gave patient TYlenol in the afternoon which brought down pain to 5/10 in B knees. Balance: Static Sitting: Normal Dynamic Sitting: Normal Static Standing: Fair Dynamic Standing: Fair Special Tests: Mobility Limitations Standardized Measure [facility] 6 clicks Basic Mobility Inpatient Short Form: Raw Score: 23? CMS Score: 11% deficit? ? ? THERA EX: Trained patient with correct performance of exercises below to maximize motor control,? joint flexibility,? soft tissue extensibility of B knee musculature. Access Code: [email or web address] URL: [email or web address] Date: 03/05/2023 Prepared by: Kasia Cedillo Exercises - Supine Quad Set - 1 x daily - 7 x weekly - 1 sets - 10 reps - 5 hold - Supine Heel Slide - 1 x daily - 7 x weekly - 1 sets - 10 reps - 5 hold - Supine Ankle Pumps - 1 x daily - 7 x weekly - 1 sets - 10 reps - 5 hold - Small Range Straight Leg Raise - 1 x daily - 7 x weekly - 1 sets - 10 reps - 5 hold - Seated March - 1 x daily - 7 x weekly - 1 sets - 10 reps - 5 hold ASSESSMENT: Goals below of achieving independence with all mobility ADLs have not been achived but patient no longer requires physical assistance with mobility ADl perforamnce as slong as she has her FWW. She will have the support of her son and grandson at home as she recovers. She will have OP PT in 2 weeks for continued B knee rehab. Patient performed much better today and was able to work through her pain with all mobility ADLs. She has been fitted and provided with FWW. Educated and trained with HEPs. Sensation of L foot turning in has resolved as of this morning. Requires use of FWW to miaximize independence and reduce fall risk. Patient presents with clinical signs and symptoms consistent with current/admitting diagnoses that have resulted to mobility limitations, gait instability, generalized weakness, and overall ADL decline as demonstrated by the following impairment level findings: 1.? Decreased strength to B knee major muscle groups 2.? Impaired sitting/standing balance 3.? Impaired activity tolerance 4.? Limitation of joint range of motion in B knees 5.? Pain of 4-5/10 in B knees Impairments are contributing to the following functional limitations: 1.? Difficulty with ambulation without assistive device 2.? Increased completion time for mobility ADL performance 3.? Increased risk for falls Goals: Goals X1 week 1. Supine-Sit independent NOT MET 2. Sit-Supine independent NOT MET 3. Sit-Stand independent NOT MET 4. Stand-Sit independent with FWW NOT MET 5. Bed-Chair independent with FWW NOT MET 6. Chair-Bed independent with FWW NOT MET 7. Independent gait on level surface with use of FWW for at least 300 feet without report of pain nor dyspnea NOT MET 8. Independent stair negotiation while holding onto B rails for at least 5 steps without report of pain nor dyspnea NOT MET 9. Independent with home exercise program NOT MET 10. Good static and dynamic standing balance/tolerance NOT MET DISCHARGE RECOMMENDATIONS: [] ? Home with no services [] [X] ? Home with services.? Patient will benefit from home health PT services in order to progress mobility level using least restrictive assistive ambulatory device, assess home safety, identify additional equipment needs, and establish a functional maintenance program that will increase ability of patient to remain at home. [] ? Home with outpatient PT [] [] ? SNF for continued rehabilitation [] [] ? Canine Deputy Care [] [] ? SNF versus LTC based on ability to participate and progress [] TREATMENT CODE/TIME: Session 1--77709 x 40 fro 3 units beginning at 12:36 PM. Session 2--03159 x 24 minutes for 2 units beginning at 14:56 PM. Thank you for the opportunity to participate in the care of this patient. Kasia Cedillo PT, DPT, CLT [facility] [place], [place]
[2023-03-05 15:29] VITALS: BP 151/84; PULSE 59; RESP 16; TEMP 36.6; O2SAT 98
== END 2023-03-05 16:20 | disposition home or self-care (01) ==
LOC: MS 14:41
PROVIDERS: Admitting Provider Student in an Organized Health Care Education/Training Program; PCP Nurse Practitioner Adult Health; Visit Provider Student in an Organized Health Care Education/Training Program
PROC: 0SRC0JZ Replacement of Right Knee Joint with Synthetic Substitute, Open Approach (ICD-10-PCS; CPT 27447; principal; 2023-03-04 10:00)
DX: M17.0 Bilateral primary osteoarthritis of knee (principal); I10 Essential (primary) hypertension
CPT/HCPCS: 27447; 20985; C1776; 76942; 97110; 97530; G0378; J0690; J1100; J1170; J2250; J2371; J2405; J2704; J8540

== ENCOUNTER 2023-03-20 13:01 | Outpatient (CLI) | payer MEDICARE, SELFPAY ==
--- NOTE | 2023-03-20 11:15 | DI.RAD_ITS ---
Exam(s) XR KNEE LT 1V XR STANDING ALIGNMENT XR KNEE RT 1V EXAM: XR STANDING ALIGNMENT XR knee bilateral 1 V CLINICAL HISTORY: S/P BILAT TKA. TECHNIQUE: 2D digital imaging was performed. Six images were obtained. COMPARISON: CR XR KNEE RT 1V from 03/20/2023 CR XR KNEE LT 1V from 03/20/2023 FINDINGS: BONES: There are degenerative changes seen in the hips bilaterally. Since the prior examination the patient has undergone bilateral total knee replacements. The orthopedic hardware is in good position . No lucencies are seen in or about the orthopedic hardware to suggest loosening or infection. Ther e is a stable well-circumscribed lytic lesion in the distal metaphysis of the left femur. The ankles are well maintained.There is no significant leg length discrepancy. SOFT TISSUE: Normal. IMPRESSION: Bilateral total knee replacements. DATA REPOSITORY: RADIATION DOSE DELIVERED:
== END 2023-03-20 13:02 | disposition home or self-care (01) ==
LOC: DIORS 13:01
PROVIDERS: PCP Nurse Practitioner Adult Health; Visit Provider Student in an Organized Health Care Education/Training Program
DX: Z47.1 Aftercare following joint replacement surgery; Z96.653 Presence of artificial knee joint, bilateral
CPT/HCPCS: 73560; 77073

== ENCOUNTER → 2023-04-17 09:37 | Outpatient (BNVA) | payer MEDICARE, SELFPAY | PROVIDERS: PCP Nurse Practitioner Adult Health; Visit Provider Student in an Organized Health Care Education/Training Program | DX: Z96.651 Presence of right artificial knee joint (principal); Z96.652 Presence of left artificial knee joint; Z47.1 Aftercare following joint replacement surgery ==

== ENCOUNTER → 2023-06-02 09:40 | Outpatient (BNVA) | payer MEDICARE, SELFPAY | PROVIDERS: PCP Nurse Practitioner Adult Health; Visit Provider Student in an Organized Health Care Education/Training Program | DX: Z47.1 Aftercare following joint replacement surgery (principal); Z96.651 Presence of right artificial knee joint; Z96.652 Presence of left artificial knee joint ==

== ENCOUNTER 2023-07-28 11:14 | Outpatient (CLI) | payer MEDICARE, SELFPAY ==
--- NOTE | 2023-07-28 10:45 | DI.RAD_ITS ---
Exam(s) XR HIP RT COMPLETE AP PELVIS EXAM: XR HIP RT COMPLETE AP PELVIS CLINICAL HISTORY: right hip pain. TECHNIQUE: 2D digital imaging was performed of the right hip. Two images were obtained. AP pelvis a nd lateral right hip views were obtained. COMPARISON: CR XR HIP PELVIS ADULT BL from 09/23/2022 CR XR STANDING ALIGNMENT from 01/06/2023 CR XR STANDING ALIGNMENT from 03/20/2023 FINDINGS: A marker ball is in place. BONES: No acute fracture is present. No bony destructive lesion is seen. JOINTS: No dislocation present. There is [id number] narrowing of the hips bilaterally. Degener ative changes are seen at the sacroiliac joints. The symphysis pubis is intact. There are subchondr al cysts seen in the acetabuli bilaterally. Tiny round densities are seen overlying the femoral neck s bilaterally which may represent loose bodies. SOFT TISSUE: Normal. IMPRESSION: Bilateral degenerative changes of the hips. DATA REPOSITORY: RADIATION DOSE DELIVERED:
== END 2023-07-28 11:15 | disposition home or self-care (01) ==
LOC: DIORS 11:23
PROVIDERS: PCP Nurse Practitioner Adult Health; Referring Provider Nurse Practitioner Adult Health; Visit Provider Student in an Organized Health Care Education/Training Program
DX: Z47.1 Aftercare following joint replacement surgery; M16.11 Unilateral primary osteoarthritis, right hip; Z96.651 Presence of right artificial knee joint; Z96.652 Presence of left artificial knee joint
CPT/HCPCS: 99213; 73502

== ENCOUNTER → 2023-07-31 13:42 | Outpatient (BNVA) | payer MEDICARE, SELFPAY | PROVIDERS: PCP Nurse Practitioner Adult Health; Referring Provider Nurse Practitioner Adult Health | DX: M16.11 Unilateral primary osteoarthritis, right hip (principal) | CPT/HCPCS: 20611; J1040 ==

== ENCOUNTER 2023-10-22 05:01 | Outpatient (CLI) | payer MEDICARE, SELFPAY ==
[2023-10-22 15:32] LABS: Anion Gap 12.7 mmol/L (3-11); BUN 23 mg/dL (7-18); CO2 22.3 mmol/L (21.0-32.0); Calcium 9.5 mg/dL (8.5-10.1); Chloride 104 mmol/L (98-107); Estimated GFR 60.98 (mL/min/1.73m2); Glucose 112 mg/dL (74-106); Potassium 4.3 mmol/L (3.5-5.1); Sodium 139 mmol/L (136-145)
== END 2023-10-22 05:02 | disposition home or self-care (01) ==
LOC: LBO 05:02
PROVIDERS: PCP Nurse Practitioner Adult Health; Referring Provider Nurse Practitioner Adult Health; Visit Provider Nurse Practitioner Adult Health
DX: I10 Essential (primary) hypertension (principal); R79.89 Other specified abnormal findings of blood chemistry
CPT/HCPCS: 36415; 80048

== ENCOUNTER 2023-11-20 05:07 | Outpatient (CLI) | payer MEDICARE, SELFPAY ==
[2023-11-20 10:19] LABS: HCT 39.3 % (36.0-46.0); HGB 13.1 g/dL (11.2-15.7); MCHC 33.3 % (32.0-36.0); MCV 93 fL (80-95); MPV 9.9 fL (8.0-11.0); Platelet Count 277 10^3/uL (130-400); RBC 4.22 10^6/uL (3.93-5.22); RDW 12.5 % (11.7-14.6); RDW-SD 42.8 fL; WBC 5.57 10^3/uL (4.4-10.8)
[2023-11-20 10:36] LABS: Anion Gap 9.2 mmol/L (3-11); BUN 20 mg/dL (7-18); CO2 24.8 mmol/L (21.0-32.0); CREATININE 1.1 mg/dL (0.55-1.02); Calcium 9.1 mg/dL (8.5-10.1); Chloride 104 mmol/L (98-107); Estimated GFR 54.39 (mL/min/1.73m2); Glucose 101 mg/dL (74-106); Potassium 4.1 mmol/L (3.5-5.1); Sodium 138 mmol/L (136-145)
== END 2023-11-20 05:08 | disposition home or self-care (01) ==
LOC: LBO 05:07
PROVIDERS: PCP Nurse Practitioner Adult Health; Visit Provider Student in an Organized Health Care Education/Training Program
DX: M16.11 Unilateral primary osteoarthritis, right hip (principal)
CPT/HCPCS: 36415; 80048; 85027

== ENCOUNTER 2023-12-02 08:10 | Day surgery (SDC) | payer MEDICARE, SELFPAY ==
[2023-12-02] VITALS (20 sets, daily range): BP systolic 110–182; BP diastolic 61–93; PULSE 59–73; RESP 16–24; TEMP 36–36.8; O2SAT 59–97; BMI 40.1
[2023-12-02] MEDS: Celecoxib 200 MG CAP 400 MG PO (09:07)
[2023-12-02] MEDS: Acetaminophen 500 MG TAB 1000 MG PO (09:07)
[2023-12-02] MEDS: Lactated Ringers 1,000 ML 80 ML IV (09:22)
--- NOTE | 2023-12-02 09:39 | W.ANESPRE ---
General Info Date of Service Date Performed: 12/02/23 Height: 5 ft 4 in Weight: 106.2 kg Body Mass Index (BMI): 40.1 Surgical Procedure: Operation Date: 12/02/23 11:35 Proposed Procedure Side Surgeon p Hip Total Hip Anterior, Corail Short Neck Right Cong Almanzar MD Actual Procedure Side Surgeon p Hip Total Hip Anterior, Corail Short Neck Right Cong Almanzar MD Pre-Op Diagnosis Post-Op Diagnosis Degenerative joint disease of right hip Meds Allergies and Home Medications Allergies Allergy/AdvReac Type Severity Reaction Status Date / Time meloxicam AdvReac Other (See Verified 12/02/23 09:02 Comment) Hay Fever Allergy Intermediate Watery Uncoded 12/02/23 09:02 eyes, runny nose Home Medication Medication Instructions Recorded acetaminophen 500 mg capsule 1,000 mg PO QID PRN 07/28/23 irbesartan 150 mg tablet 150 mg PO DAILY #90 tabs 08/11/23 metoprolol succinate 25 mg 25 mg PO HS #90 tabs 10/29/23 tablet,extended release 24 hr Current Visit Medications: Current Medications Generic Name Dose Route Start Last Admin Trade Name Freq PRN Reason Stop Dose Admin Acetaminophen 1,000 mg 12/02/23 06:00 12/02/23 09:07 Acetaminophen 500 Mg Tab PO 12/02/23 23:59 1,000 mg PREOP RUBEN Administration Celecoxib 400 mg 12/02/23 06:00 12/02/23 09:07 Celecoxib 200 Mg Cap PO 12/02/23 23:59 400 mg PREOP RUBEN Administration Ringer's Solution 1,000 mls @ 80 mls/hr 12/02/23 06:00 12/02/23 09:22 IV 12/02/23 23:59 80 mls/hr INFUSION RUBEN Administration Cefazolin Sodium/Dextrose 2 gm in 50 mls @ 100 mls/hr 12/02/23 06:00 Ancef Duplex IVPB 12/02/23 23:59 PREOP RUBEN Tranexamic Acid/Sodium Chloride 1,000 mg in 100 mls @ 600 mls/hr 12/02/23 06:00 IVPB 12/02/23 23:59 PREOP RUBEN IV Miscellaneous Supplies 1 each 12/02/23 06:00 Iv Access IV 12/02/23 23:59 DIRECTED RUBEN Sodium Chloride 0 ml 12/02/23 06:00 Normal Saline Flush 10 Ml Syr IV 12/02/23 23:59 PRN PRN Sodium Chloride 0 ml 12/02/23 06:00 Normal Saline 10 Ml Vial IJ 12/02/23 23:59 DIRECTED PRN Sterile Water 0 ml 12/02/23 06:00 Water,Injection,Sterile 10 Ml Vial IJ 12/02/23 23:59 DIRECTED PRN PFSH Active Problems Active Problems: Problem Status Onset Code Worries R45.82 Degenerative joint disease of right hip ~07/2023 M16.11 Bilateral hip pain M25.551, M25.552 [facility] arthritis M19.049 Hypertension ~11/2022 I10 Elevated serum creatinine ~12/2022 R79.89 Medical History Medical History Tears of meniscus and ACL of left knee (~09/2022) Tear of medial meniscus of left knee (~09/2022) Elevated BP without diagnosis of hypertension Surgical History Surgical History History of total right knee replacement (03/05/23) History of total left knee replacement (03/05/23) Hx of dilation and curettage Tobacco Smoking/Tobacco Use Status: Never Passive smoking exposure: No Alcohol Alcohol Intake: current Alcohol intake frequency: a few times a month Substance Use Substance use: Never Substance use type: does not use Vital Signs and Lab Results Vital Signs Most Recent Vital Signs in EMR: Most Recent Vital Signs Temp Pulse Resp BP Pulse Ox 36.2 C L 67 16 182/93 H 97 12/02/23 08:58 12/02/23 08:58 12/02/23 08:58 12/02/23 08:58 12/02/23 08:58 Lab Results Blood Type / Crossmatch: No Data to Display Complete Blood Count: White Blood Count 5.57 10^3/uL (4.4-10.8) 11/20/23 10:10 Red Blood Count 4.22 10^6/uL (3.93-5.22) 11/20/23 10:10 Hemoglobin 13.1 g/dL (11.2-15.7) 11/20/23 10:10 Hematocrit 39.3 % (36.0-46.0) 11/20/23 10:10 Platelet Count 277 10^3/uL (130-400) 11/20/23 10:10 Complete Metabolic Panel: Sodium 138 mmol/L (136-145) 11/20/23 10:10 Potassium 4.1 mmol/L (3.5-5.1) 11/20/23 10:10 Chloride 104 mmol/L (98-107) 11/20/23 10:10 Carbon Dioxide 24.8 mmol/L (21.0-32.0) 11/20/23 10:10 BUN 20 mg/dL (7-18) H 11/20/23 10:10 Creatinine 1.1 mg/dL (0.55-1.02) H 11/20/23 10:10 Est GFR (CKD-EPI 2020) 54.39 (mL/min/1.73m2) 11/20/23 10:10 Calcium 9.1 mg/dL (8.5-10.1) 11/20/23 10:10 Glucose 101 mg/dL (74-106) 11/20/23 10:10 Liver Function Panel: No Data to Display Coagulation Panel: No Data to Display Cardiac Panel: No Data to Display Arterial Blood Gas: No Data to Display Venous Blood Gas: No Data to Display Pancreas Panel: No Data to Display Thyroid Panel: No Data to Display Infectious Disease: No Data to Display Blood Cultures: No Data to Display Toxicology Panel: No Data to Display Anesthesia Assessment and Plan Anesthesia History Personal History: No History of Anesthesia Complications Family History: No Family History of Anesthesia Complications Exercise Tolerance Exercise Tolerance: Metabolic Equivalents>4 Pertinent Negatives Pertinent Negatives: No Symptoms of GERD Cardiac & Pulmonary Exam Cardiac Exam: Normal S1/S2 Heart Sounds Pulmonary Exam: Clear Bilateral Breath Sounds Implantable Cardiac Device Does patient have a Pacemaker or an ICD?: No Airway Exam Known Difficult Airway: No Mallampati Class: 3 Mouth Opening: Normal (> 3cm) Thyromental Distance: Greater than 3 cm Neck Range of Motion: Full ROM Neck Circumference: Thick Teeth Condition: Removable Dentures/Plates Upper and Removable Dentures/Plates Lower ASA Classification ASA Score: ASA 3 Emergency Case?: No NPO Status NPO Status: NPO Clears >2 hours, Solids >8 hours Anesthesia Plan Resuscitation Status: Full Code Anesthesia Technique: Spinal Anesthesia Airway Planned: Natural Airway Monitors Used: Standard Monitors
--- NOTE | 2023-12-02 10:10 | DSE_ITS ---
Date of service: 12/02/23 Time of Service: 10:15 Discharge Plan Disposition Patient Disposition: Home Condition: Good Discharge Details Reason For Visit: Right hip DJD Attending Provider: Cong Almanzar Primary Care Provider: Margret Sullivan Home Meds and New Rx's Prescriptions: New celecoxib [Celebrex] 200 mg capsule 200 mg PO BID PRNQty: 60 0RF Rx Instructions: Take one tablet twice daily for pain and inflammation aspirin 81 mg tablet,delayed release (DR/EC) 81 mg PO BID 30 Days Qty: 60 0RF acetaminophen 500 mg tablet 1,000 mg PO Q8H PRN Qty: 90 0RF Rx Instructions: Take two tablets up to every 8 hours as needed for pain pantoprazole 40 mg tablet,delayed release (DR/EC) 40 mg PO DAILY Qty: 14 0RF dexamethasone 4 mg tablet 4 mg PO DAILY Qty: 2 0RF Rx Instructions: Take one tablet once daily for two days docusate sodium [Colace] 100 mg capsule 100 mg PO BID Qty: 30 0RF oxycodone 5 mg tablet 5 mg PO Q6H PRNQty: 12 0RF Rx Instructions: Take one tablet up to every 6 hours as needed for severe postoperative pain Continued irbesartan 150 mg tablet 150 mg PO DAILY Qty: 90 3RF Rx Instructions: goal BP <140/90 metoprolol succinate 25 mg tablet extended release 24 hr 25 mg PO HS Qty: 90 3RF Discontinued acetaminophen 500 mg capsule 1,000 mg PO QID PRN Discharge Instructions Additional Instructions: Total Hip Discharge Instructions Activity: The most important activity is to walk. You should try to take short walks a few times a day. You have no restrictions on movement or positioning, but do not try to force what you do. You will find some stiffness and weakness with hip flexion (lifting your knee). Do not try to strengthen this too early, continue to practice walking and stairs and this will come. - Outpatient physical therapy can be helpful to help return you to a normal gait and improve your flexibility and strength. This can start around 2 weeks. For some patients, it?s not necessary. Usually this is determined at the time of discharge or at the first post-operative visit. - You should wear the RO hose on both legs for 2 weeks. Dressing: Keep the surgical dressing in place for at least one week. After the first week it may be removed and replace with light gauze and tape or nothing. It may get wet after 3 days but avoid soaking the dressing. If it gets wet, just lightly pat dry. It is important to always keep some gauze between skin folds, especially when you are sitting. Spend some time with the wound exposed when you are lying flat as the incision does wrinkle onto itself. Medications: - You should take Tylenol and an anti-inflammatory Celebrex as your primary pain control medications. If the Celebrex is too expensive or not covered, please call the office for another alternative (Advil/Ibuprofen or Naproxen/Aleve). - You have been prescribed a stronger pain medication Oxycodone for breakthrough pain, take as needed as prescribed. - You have also been prescribed a stomach acid reduction agent Pantoprozole to help reduce stomach acid and reflux. - You have also been prescribed Decadron to help with post-operative nausea and pain. You will take this for two days starting tomorrow. - You will be taking Aspirin 81mg twice a day for DVT prevention unless instructed otherwise. - If you have constipation you should take Colace (which has been prescribed) or Miralax (which is available [id number]). It takes most people 3-4 days to have a bowel movement. Follow-up: 2 weeks If you have any acute concerns or questions, please do not hesitate to contact the office at [phone]. You may contact Dr. Almanzar with any questions after hours through the hospital at [phone] or on his cell phone at [phone]. Stand Alone Forms: Anesthesia Discharge InstAlivia, Fatmata Givens (DSU) Referrals: Cong Almanzar MD [ [facility] STAFF PHYSICIAN] - 12/15/23 11:15 am Equipment/Supplies: Walker Activity:: Activity as Tolerated Remove Dressings/Wound Care:: Do Not Remove Shower/Bathe:: Cover Diet:: As Tolerated Discharge Orders Discharge Orders: Discharge Order (Routine); Ordered 12/02/23 Ordered By: Christie Mullen DS: Summary Time Spent with Patient providing and/or coordinating discharge services: Less than 30 minutes Status at Discharge Functional status at discharge: uses cane/walker Overall status at discharge: patient is progressing back to baseline Mental Status: mental status grossly normal Speech and Movement: speech and movement normal Mood: congruent mood Affect: normal affect Quality:SDOH Health Related Social Needs: No Data to Display Exam Psych Mental Status: mental status grossly normal Speech and Movement: speech and movement normal Mood: congruent mood Affect: normal affect DS: Data Vitals/I&O Vitals and I&O: Vital Signs Temperature 97.2 F L 12/02/23 08:58 Pulse 67 12/02/23 08:58 Pulse Rhythm Regular 12/02/23 08:58 Respiratory Rate 16 12/02/23 08:58 Respiratory Depth Normal 12/02/23 08:58 Blood Pressure 182/93 H 12/02/23 08:58 Pulse Oximetry 97 12/02/23 08:58 Oxygen Delivery Method Room Air 12/02/23 08:58 Oxygen Flow Rate 0 12/02/23 08:58 Pain Level 1 12/02/23 08:58 Intake & Output 12/01/23 12/01/23 12/02/23 11:59 23:59 11:59 Weight 234 lb 2.095 oz Other: Voiding Methods Toilet PFSH All Active Problems Worries (Acute) Degenerative joint disease of right hip (Chronic ~07/2023) 80 mg intraarticular injection under u/s: 07/31/23 Bilateral hip pain (Acute) CMC arthritis (Acute) L (R hand dominant) Hypertension (Chronic ~11/2022) Elevated serum creatinine (Acute ~12/2022) Medical History Tears of meniscus and ACL of left knee (~09/2022) Tear of medial meniscus of left knee (~09/2022) Elevated BP without diagnosis of hypertension Surgical History History of total right knee replacement (03/05/23) History of total left knee replacement (03/05/23) Hx of dilation and curettage Family History Mother , COPD; at 90yo Asthma Maternal Grandmother Heart disease Father Hypertension Social History Smoking/Tobacco Use Status: Never Smoking risk assessment performed?: Yes Alcohol Intake: current Alcohol Intake frequency: a few times a month Drug use: Never Substance use type: does not use Adopted: No Caregiver/Support person: No Foster care: No Household members: children and other Details: Grandchild Housing: house Number of Children: 2 number of grandchildren: 2 Communication Needs: Corrective Lenses Education Level: high school Do you need help understanding health information?: Rarely 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[employer] Pets and animals: Yes (1) Pets and animals: dog(s) Sexually active: No Do you think of yourself as: straight/heterosexual Current gender identity: female What is your relationship status?: How often do you talk on the phone with friends or family?: once per week How often do you get together with friends or relatives?: once per week Do you belong to any clubs or organized social groups?: yes Panel score (0-1 are the most socially isolated patients): 1 What type of physical activity do you participate in: walking Duration: 15-30 minutes/day Frequency: 1-2 times per week Alexandra/Yazidi: Worship Special alexandra needs: No Seatbelt use: always Helmet use: Yes Helmet use: always Drive intox or ride w/intox tow truck driver: No Do you feel safe at home: Yes (lives with son) Do you feel safe in your relationship?: Yes Time Spent with Patient Time Spent with Patient: <45 minutes Time was spent: preparing to see the patient(eg.review tests), obtaining and/or reviewing separately otained hiistory and counseling the patient
[2023-12-02] MEDS: ceFAZolin 2 GM/50 ML BAG IVPB (10:28)
[2023-12-02] MEDS: TRANEXAMIC ACID/SOD. CHL. 1,000 MG/100 ML BAG 600 MG IVPB (10:45)
--- NOTE | 2023-12-02 11:50 | DI.RAD_ITS ---
Exam(s) XR HIP RT IN OR EXAM: XR HIP RT IN OR CLINICAL HISTORY: Degenerative joint disease of right hip. TECHNIQUE: 2D digital imaging was performed. COMPARISON: No exams were available for comparison FINDINGS: Fluoroscopy provided during hip arthroplasty. See procedure report for details. Total fluoroscopy time 37.8 seconds IMPRESSION: Radiation exposure index/cumulative dose:dennys Wei= 7.7362 mGy DATA REPOSITORY: RADIATION DOSE DELIVERED:
[2023-12-02] MEDS: fentaNYL 100 MCG/2 ML VIAL IVP ×2 (12:47→12:57)
--- NOTE | 2023-12-02 12:56 | W.ANESPOSTOP ---
Postoperative Evaluation Date, Time and Location Date Performed: 12/02/23 Time Performed: 12:56 Patient Location: PACU Vital Signs Most Recent Imported Vital Signs: Most Recent Vital Signs Temp Pulse Resp BP Pulse Ox 36.4 C L 63 18 144/82 H 97 12/02/23 12:51 12/02/23 12:51 12/02/23 12:51 12/02/23 12:51 12/02/23 12:51 Pain Score Most Recent Pain Score: Most Recent Pain Score Pain Level 8 12/02/23 12:51 Assessment Mental Status: Awake (Alert & Oriented to Patient Baseline) Airway and Respiratory Function: Patent airway with normal (patient baseline) respiratory exam Cardiovascular Function: Hemodynamically Stable Hydration Status: Adequately Hydrated Nausea & Vomiting: No Nausea or Vomiting Pain: Pain is tolerable per patient Peripheral Nerve Block: Patient did not receive a nerve block
[2023-12-02] MEDS: Normal Saline 10 ML VIAL IJ (13:10)
[2023-12-02] MEDS: HYDROmorphone 2 MG/ML SYR IVP ×2 (13:10→13:24)
--- NOTE | 2023-12-02 13:30 | ROE_ITS ---
Date of service: 12/02/23 Time of Service: 10:45 Operative Note Operative Note DATE OF PROCEDURE: 12/02/23 PRE-OP DIAGNOSIS: Right Hip Osteoarthritis POST-OP DIAGNOSIS: same PROCEDURE: Right Anterior Total Hip Arthroplasty with Intraoperative Navigation SURGEON: Cong Almanzar LABORER BRUSH CLEARING: Christie Mullen ANESTHESIA TYPE: Spinal Refer to Anesthesia Record ESTIMATED BLOOD LOSS: 200 PATHOLOGY: none sent TOURNIQUET TIME: 0 COMPLICATIONS: None Patient was transported to: PACU Patient's condition: stable Implants: 1. Depuy Altamont Acetabular Component, 52mm 2. Depuy Acetabular Liner, 25h29on 3. Depuy Corail Standard Collared Femoral Stem, Size 11 4. Depuy Altrx Ceramic Femoral Head, Size 36+1.5mm Indications: I have seen Yas in clinic for symptoms of hip arthritis, confirmed with radiographic findings. She has exhausted nonoperative methods and was having significant limitations in daily function and desired better function and less pain. I discussed the technical details of a hip replacement. I explained the risks of the procedure to include, but not limited to, bleeding, infection, pain, stiffness, fracture, damage to nerves and vessels, damage to muscles and tendons, loosening, instability, leg length inequality, need for repeat procedure, blood clot and cardiopulmonary demise. Despite these risks, Yas elected to proceed. Findings: There was notable signs of arthritis, mostly about the femoral head with significant synovitis. Procedure Description: Yas was greeted in the preoperative holding area where the correct side was identified and marked. The consent was reviewed with the patient and signed. The history and physical was updated. All questions were answered. Yas was taken back to the operating room. A spinal anesthestic was then administered. The feet were wrapped with cast padding and Coban and then placed into the boot liners and then into the boots. Care was taken to protect the skin and make sure the heels were fully down and the boots were stable. The patient was then positioned onto the HANA table. Both legs were held in a neutral position. SCDs were applied. The patient was then slid down onto a peroneal post. Prophylactic antibiotics in the form of Cefazolin were administered. 1g of Tranxemic Acid was given intravenously within 30 minutes of incision. The right leg was then prepped with Chloraprep and draped in a standard fashion. A second prep with Chloraprep was performed prior to placement of a shower-curtain type drape with Iodine impregnated skin protection . A timeout to confirm correct identity, side and site, procedure, allergies, anesthesia, and medical concerns was performed. An obliquely oriented incision was made starting lateral to the ASIS and running distal over the Tensor Fascia Anette (TFL) muscle belly toward the fibular head, approximately 10cm. The skin and soft tissue was dissected sharply, through Cierra?s fascia, and to the fascia of the TFL. With the fascia and superior border of the IT band identified, the fascia was incised with a new knife just above any perforators from the IT band. The TFL muscle belly was bluntly disse cted away from the fascia and moved laterally. The fat between TFL and rectus was identified to ensure the dissection was not within the TFL. Blunt dissection created space between abductors and the capsule and retractor was placed over the lateral femoral neck. The fibers of the rectus femoris tendon were identified and these were freed from the anterior capsule. A second cobra retractor was placed around the medial femoral neck. The TFL was further retracted laterally to show the deep fascia. Careful dissection through this layer identified three main crossing vessels of the lateral femoral circumflex. These were cauterized in multiple locations and then cut without any noticeable bleeding. The TFL was further released bluntly from the deep fascia to expose anterior hip capsule and fat The Ki orthopaedic retractor was then placed beneath the TFL and against sartorius and medial soft tissues to protect and retract the soft tissues. A T-capsulotomy was then performed starting at the superior lateral acetabulum and moving distally to the intertrochanteric ridge. These capsular flaps were tagged with a No. 1 Ethibond and elevated from within. The capsular flaps were released to the shoulder of the lateral neck and to the lesser trochanter to give excellent visualization of the proximal femur. A neck osteotomy was performed using an oscillating saw based on preoperative templates. This cut started in the shoulder and of the lateral neck and exited medially. The saw was at all times directed medially to avoid injury to the greater trochanter. Gross traction was applied to the leg and the osteotomy opened. The femoral head was removed with a corkscrew, making sure to protect the TFL on its exit. Traction was released after head removal. This was carlos ured on the back table to determine the starting reamer size. Portions of the rectus obscuring visualization were minimally elevated off the superior acetabulum. An anterior retractor was placed over the anterior wall between capsule and labrum and attached to the Gripper retraction system. The femur was rotated to 90 degrees and medial capsule was fully released until the lesser trochanter was palpable and visible; the femur was returned to 30 degrees. A posterior retractor was placed similarly between capsule and labrum. This provided excellent visualization. The contents of the cotyloid fossa were removed with electrocautery and the labrum was removed with a knife. Acetabular reaming began with a 46mm reamer. This first reaming was directed anterior to posterior and medial to get down to the true floor. This was inspected and reamed until the true floor was reached. The anterior retractor was then released and entry and exit was provided by traction on the capsular flaps. I then reamed sequentially up to a 52mm reamer where good fit was obtained. The larger reamers were oriented based on anatomical reference of the anterior and lateral olivas to ensure proper abduction and anteversion. Positioning and size was confirmed with the fluoroscopy. A 52mm Depuy Altamont acetabular component was selected. The acetabulum was reamed around the periphery with the selected acetabular size to prevent a rim fit. The deep tissues were irrigated. The acetabular component was then impacted in a position of about 40-45 degrees of abduction and 15-20 degrees of anteversion, using the patient?s anatomy as the ultimate landmark. Fluoroscopy was used to confirm this. There was excellent voip engineer of the acetabular component and the inserting handle was removed. The acetabular liner, Depuy [id number] polyethylene liner, was inserted and lined up with the tines of the acetabular component. There was no soft tissue interposition. The liner was then impacted into position and confirmed to be well-seated. A portion of the sahara-articular cocktail was then injected around the acetabulum into the capsule and periosteum. This cocktail consisted of 123mg of Ropivacaine, 0.25mg of Epinephrine, 0.04mg of Clonidine, and 15mg of Ketorolac, diluted to 50cc. The leg was rotated to 120 degrees. Any remaining medial capsule was released until the lesser trochanter was easily palpable. A retractor was placed medially. The lateral capsule was further released into the shoulder to allow access to the greater trochanter. A Barcenas retractor was placed over the greater trochanter which allowed the trochanter to flip in front of the capsule for excellent exposure. The leg was brought down into maximal extension and 20 degrees of adduction while ensuring there was no impingement on the acetabulum. Any remnant capsule within the trochanter was released. Piriformis and obturator externis were identified and protected. There was excellent access to the proximal femur. The lateral neck remnant was removed with a rongeur. A blunt canal probe was used to identify the canal and trajectory for later broaching. A box osteotome initiated the broach course. A small curved rasp and a curved curette were used to work laterally. Broaching then began with a size 8 Corail broach. This was inserted manually around the trochanter and into the canal before mallet blows. The broach was seated to a few millimeters below the cut level based on the neck cut and the preoperative template. Sequential broaching was continued with the [email or web address] pneumatic broaching device until a tight fit was obtained with good rotational control of the femur. A trial short neck was inserted along with a +5 trial head. The leg was brought out of extension and adduction and then reduced with traction and internal rotation. The leg was stable anteriorly in a position of 30 degrees of extension and 90 degrees of external rotation. Fluoroscopy was used to ensure there was no fracture and the stem was seated well. Leg lengths were checked with an AP pelvis and pelvic reference points. Benefitter navigation system was used to confirm appropriate positioning and leg length and offset. This undercorrected the offset, so I advanced the broach 3-4mm and went with a standard 135 degree neck. Once content with the desired offset and leg lengths, the leg was brought back into extension, external rotation and adduction. The periosteum and surrounding tissue was injected with remaining portion of the sahara-articular cocktail. The proximal femur was irrigated as well as the deep tissues. The Depuy Corail standard collared stem, size 11, was then manually inserted into the proximal femur making sure to control rotation. It was then malleted into position with light blows, giving breaks to allow bone expansion and decrease risk of fracture. The selected Depuy Altrx Ceramic Head, size 36+1.5mm, was then placed onto the clean and dry trunnion and secured with imp action onto the tapered fit. The leg was brought back out of extension and adduction and reduced with traction and internal rotation. Stability was confirmed with no shuck at 90 degrees of external rotation and 30 degrees of extension. No impingement through range of motion arc. Final x-ray images were obtained with fluoroscopy to confirm adequate positioning and no intraoperative fracture. The deep tissues were thoroughly irrigated with Surgiphor, betadine solution. This was allowed to sit in the wound for 3 minutes before being thoroughly irrigated out with normal saline. The capsule was then reapproximated with the previously placed Ethibond sutures. The TFL fascia was finally closed with a No. 2 Stratafix, barbed suture. Deep tissues were then reapproximated with 0 Vicryl and a running 2-0 Vicryl. The skin was closed with a running 4-0 Monocryl in a subcuticular fashion. This was reinforced with skin glue. A Mepilex silver dressing was applied. At the end of the case, all counts were correct. Yas was transferred to the hospital bed without difficulty and suffering no apparent complication. Yas has a good prognosis. Physical therapy will start today and without restrictions, weight-bearing as tolerated. Aspirin 81mg BID will be used for DVT prophylaxis.
--- NOTE | 2023-12-02 14:56 | PT.INIE ---
PT Notes Visit Reasons: Right hip DJD Physical Therapy Day Surgery Unit Initial Evaluation Date: 12/02/2023 Referring Doctor: JEN Day PT Orders: PT CONSULT: S/P Ortho surgery Precautions: Fall. Standard. WBAT on R LE with AD. Patient Profile/Admitting Diagnosis: Olga is a 89year-old female with degenerative joint disease of the R hip and is status post right total hip arthroplasty on postoperative day 0. PMHX: All Active Problems Worries (Acute) Degenerative joint disease of right hip (Chronic ~07/2023) 80 mg intraarticular injection under u/s: 07/31/23 Bilateral hip pain (Acute) CMC arthritis (Acute) L (R hand dominant)Hypertension (Chronic ~11/2022) Elevated serum creatinine (Acute ~12/2022) Medical History Tears of meniscus and ACL of left knee (~09/2022) Tear of medial meniscus of left knee (~09/2022) Elevated BP without diagnosis of hypertension Surgical History History of total right knee replacement (03/05/23) History of total left knee replacement (03/05/23) Hx of dilation and curettage Social History/Home Situation: Lives with son and grandson in a private home with 3 steps to enter with rails on both sides. Son and grandson are not available during the day but are both accessible and could come in less than 10 minutes if needed. Independent with all aspects of ADLs prior to surgery. Equipment Owned/DME: 4-wheeled walker Subjective: Reports 4/10 pain in B knees with weight-bearing. Denies lightheadedness, chest pain, and headache throughout. Little sleepy. Objective: General Observation: Seated on bedside chair. Mepilex Ag over surgical incision. High BMI. Mental Status: Alert and oriented as to person, place, time, and purpose. Able to pay attention, focus, and respond appropriately. Pain: As above Vital Signs: Closely monitored by nursing staff ROM: Right Lower Extremity: Hip flexion WFL. Hip abduction WFL. Knee flexion WFL. Ankle dorsiflexion WFL. Ankle plantarflexion WFL. Left Lower Extremity: Hip flexion WFL. Hip abduction WFL. Knee flexion WFL. Ankle dorsiflexion WFL. Ankle plantarflexion WFL. Strength: Right Lower Extremity: Hip flexors 4-/5. Hip abductors 4-/5. Knee flexors 3-/5. Knee extensors 3-/5. Ankle dorsiflexors 3-/5. Ankle plantarflexors 4-/5. Left Lower Extremity: Hip flexors 4/5. Hip abductors 4/5. Knee flexors 4/5. Knee extensors 4/5. Ankle dorsiflexors 4/5. Ankle plantarflexors 44/5. Bed Mobility/Transfers: Moderate cues provided for hand placement, movement sequence, AD management, and posture for activities below: Sit to stand with stand by assist with FWW Stand to sit with stand by assist with FWW Bed to reclining chair stand by assist with FWW Gait: Guided and instructed patient with limb advancement, posture, AD management, weight bearing precaution, and overall safety with level surface ambulation of 150 feet requiring contact guard assist using front-wheeled walker. Stairs: Facilitated safe negotiation of 3 x 4 inch steps and 2 x 6 inch steps while holding onto the rails with step to gait pattern requiring minimal verbal cueing for correct limb sequence, hand placement, and posture to reduce fall risk and minimize pain report. Balance: Static Sitting: Normal Dynamic Sitting: Normal Static Standing: Fair Dynamic Standing: Fair Special Tests: Mobility Limitations Standardized Measure [facility] AM-PAC 6 clicks Basic Mobility Inpatient Short Form: Raw Score: 15 CMS Score: 58% deficit Informed Consent/Education: Patient was instructed in purpose of PT consult and plan of care. Agreeable to proceed with established PT POC to achieve personal goals. Trained patient with correct performance of exercises below to maximize motor control, joint flexibility, soft tissue extensibility of the R hip musculature to facilitate return to independent functional mobility performance. Access Code: [email or web address] URL: [email or web address] Date: 12/01/2022 Prepared by: Kasia Cedillo Exercises - Gluteal Sets - 1 x daily - 7 x weekly - 1 sets - 10 reps - 5 hold - Supine Heel Slide - 1 x daily - 7 x weekly - 1 sets - 10 reps - 5 hold - Supine Ankle Pumps - 1 x daily - 7 x weekly - 1 sets - 10 reps - 5 hold - Seated March - 1 x daily - 7 x weekly - 1 sets - 10 reps - 5 hold - Seated Long Arc Quad - 1 x daily - 7 x weekly - 1 sets - 10 reps - 5 hold ASSESSMENT: Patient requires use of a front wheeled walker for mobility ADL performance to maximize independence and reduce fall risk. Patient presents with clinical signs and symptoms consistent with current/admitting diagnoses that have resulted to mobility limitations, gait instability, generalized weakness, and overall ADL decline as demonstrated by the following impairment level findings: 1. Decreased strength in R hip major muscle groups 2. Impaired standing balance 3. Impaired activity tolerance Impairments are contributing to the following functional limitations: 1. Decline in bed mobility skills 2. Decline in transfer skills 3. Difficulty with ambulation without assistive device 4. Increased completion time for mobility ADL performance 5. Increased risk for falls 6. Difficulty with managing steps alone safely Patient is assessed as a 35035 moderate complexity based on the following: History: 67-year-old female with past medical history as indicated above Examination: Demonstrable impairment in strength, balance, and mobility level with underlying impairments and functional limitations as exhibited above as well as deficit score of 21% utilizing the [facility] Mobility Inpatient Short Form Presentation: Evolving Decision Makin moderate complexity Goals: N/A. PT evaluation and 1 treatment session only for functional mobility training and HEP instruction. Plan of Care/Treatment Plan: N/A. PT evaluation and 1 treatment session only for functional mobility training and HEP instruction. DISCHARGE RECOMMENDATIONS: Home when medically cleared by orthopedic surgeon. Recommend outpatient PT services in order to optimize functional mobility outcomes and facilitate return to independent community ambulation without an assistive device. TREATMENT CODE/TIME: 93883 x 27 minutes for 1 unit (14:56?15:23). Thank you for the opportunity to participate in the care of this patient. Please sign an return this page within 30 days if you agree with the above POC. Thank you! Physician Signature Date Kasia Cedillo PT, DPT, CLT [facility] [place], [place]
== END 2023-12-02 15:34 | disposition home or self-care (01) ==
PROVIDERS: PCP Nurse Practitioner Adult Health; Visit Provider Student in an Organized Health Care Education/Training Program
PROC: (CPT 27130; principal; 2023-12-02 11:15)
DX: M16.11 Unilateral primary osteoarthritis, right hip (principal); I10 Essential (primary) hypertension; Z96.653 Presence of artificial knee joint, bilateral
CPT/HCPCS: 20985; 27130; C1776; 97162; 73501; J0690; J1100; J1170; J2001; J2250; J2401; J2405; J2704; J3010

== ENCOUNTER 2023-12-15 14:46 | Outpatient (CLI) | payer MEDICARE, SELFPAY ==
--- NOTE | 2023-12-15 11:00 | DI.RAD_ITS ---
Exam(s) XR HIP RT COMPLETE AP PELVIS EXAM: XR HIP RT COMPLETE AP PELVIS INDICATION: 1ST POST OP R TIMMY. COMPARISON: CR XR HIP RT COMPLETE AP PELVIS from 07/28/2023 XA XR HIP RT IN OR from 12/02/2023 TECHNIQUE: 2D digital imaging was performed. Two views. FINDINGS: Has been no change in the alignment of the right hip prosthesis. There are no abnormal surrounding l ucencies. Degenerative changes are again noted in the left hip. DATA REPOSITORY: RADIATION DOSE DELIVERED:
== END 2023-12-15 14:47 | disposition home or self-care (01) ==
LOC: DIORS 14:46
PROVIDERS: PCP Nurse Practitioner Adult Health; Referring Provider Nurse Practitioner Adult Health
DX: Z96.641 Presence of right artificial hip joint (principal); Z47.1 Aftercare following joint replacement surgery
CPT/HCPCS: 73502

== ENCOUNTER → 2024-01-12 09:09 | Outpatient (BNVA) | payer MEDICARE, SELFPAY | PROVIDERS: PCP Nurse Practitioner Adult Health; Visit Provider Student in an Organized Health Care Education/Training Program | DX: Z47.1 Aftercare following joint replacement surgery (principal); Z96.641 Presence of right artificial hip joint ==

== ENCOUNTER 2024-03-08 11:36 | Outpatient (CLI) | payer MEDICARE, SELFPAY ==
--- NOTE | 2024-03-08 10:00 | DI.RAD_ITS ---
Exam(s) XR KNEE LT 2V AP,LAT XR KNEE RT 2V AP,LAT EXAM: XR KNEE RT 2V AP,LAT CLINICAL HISTORY: ANNUAL F/U R TKA. TECHNIQUE: 2D digital imaging was performed. Three views. COMPARISON: CR XR STANDING ALIGNMENT from 03/20/2023 CR XR KNEE LT 1V from 03/20/2023 CR XR KNEE RT 1V from 03/20/2023 CR XR KNEE LT 2V AP,LAT from 03/08/2024 FINDINGS: BONES: No acute fracture is present. No bony destructive lesion is seen. Stable benign appearing left distal femoral lesion. JOINTS: Stable alignment bilateral knee prostheses. The knee is normally aligned. No joint effusion is seen. SOFT TISSUE: Normal. IMPRESSION: Stable appearance of bilateral knee prostheses. DATA REPOSITORY: RADIATION DOSE DELIVERED:
== END 2024-03-08 11:37 | disposition home or self-care (01) ==
LOC: DIORS 11:36
PROVIDERS: PCP Nurse Practitioner Adult Health; Referring Provider Nurse Practitioner Adult Health; Visit Provider Student in an Organized Health Care Education/Training Program
DX: Z47.1 Aftercare following joint replacement surgery (principal); Z96.653 Presence of artificial knee joint, bilateral
CPT/HCPCS: 99213; 73560

== ENCOUNTER 2024-04-17 15:16 | Emergency (ER) | payer OTHER, MEDICARE, SELFPAY ==
[2024-04-17] VITALS (18 sets, daily range): BP systolic 166–188; BP diastolic 80–94; PULSE 62–83; RESP 8–21; TEMP 36.6; O2SAT 96–99
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
[2024-04-17 15:38] LABS: Abs Immature Grans 0.01 10^3/uL (0.0-0.06); Absolute Basophil Count 0.06 10^3/uL (0.0-0.2); Absolute Lymphocyte Count 1.93 10^3/uL (1.2-3.4); Absolute Monocyte Count 0.56 10^3/uL (0.1-0.8); Absolute Neutrophil Count 2.61 10^3/uL (1.2-6.7); Basophils % 1.1 %; Eosinophils % 8.8 %; HCT 39.8 % (36.0-46.0); Immature Grans % 0.2 %; MCH 29.3 pg (27.0-33.0); MCHC 32.7 % (32.0-36.0); MCV 90 fL (80-95); MPV 10.4 fL (8.0-11.0); Monocytes % 9.9 %; Platelet Count 267 10^3/uL (130-400); RBC 4.44 10^6/uL (3.93-5.22); RDW 13.1 % (11.7-14.6); RDW-SD 43.2 fL; WBC 5.67 10^3/uL (4.4-10.8)
[2024-04-17] MEDS: Normal Saline - Diluent 50 ML VIAL IJ (15:49)
[2024-04-17] MEDS: Omnipaque 350 MG/ML 100 ML BTL IJ (15:50)
[2024-04-17 15:56] LABS: ALT 19 U/L (14-59); AST 17 U/L (15-37); Albumin 3.6 g/dL (3.4-5.0); Alkaline Phosphatase 124 U/L (46-116); Anion Gap 10.2 mmol/L (3-11); BUN 24 mg/dL (7-18); Bilirubin, Total 0.48 mg/dL (0.2-1.0); CO2 23.8 mmol/L (21.0-32.0); Calcium 9.5 mg/dL (8.5-10.1); Chloride 106 mmol/L (98-107); Estimated GFR 60.98 (mL/min/1.73m2); Glucose 97 mg/dL (74-106); Potassium 3.8 mmol/L (3.5-5.1); Sodium 140 mmol/L (136-145); Total Protein 7.7 g/dL (6.4-8.2)
[2024-04-17 16:10] LABS: PTT Activated 26.7 sec (23.6-32.8)
[2024-04-17] MEDS: ACETAMINOPHEN 1,000 MG/100 ML BAG 400 MG IVPB (16:18)
== END 2024-04-17 17:10 | disposition home or self-care (01) ==
PROVIDERS: Emergency Provider Emergency Medicine; PCP Nurse Practitioner Adult Health
DX: R51.9 Headache, unspecified (principal); R10.30 Lower abdominal pain, unspecified; V49.40XA Driver injured in collision with unspecified motor vehicles in traffic accident, initial encounter
CPT/HCPCS: 36415; 74177; 80053; 93005; 96374; 99285; 71260; 85025; 85610; 85730; 93010; 99283; J0131; J3490

== ENCOUNTER 2024-05-07 09:23 | Outpatient (CLI) | payer MEDICARE, SELFPAY ==
--- NOTE | 2024-05-07 09:26 | DI.RAD_ITS ---
Exam(s) XR KNEE LT 3V AP,LAT,YUSUF EXAM: XR KNEE LT 3V AP,LAT,YUSUF CLINICAL HISTORY: left knee pain. TECHNIQUE: 2D digital imaging was performed. Three images were obtained. AP, AP tunnel and lateral views were obtained. COMPARISON: CR XR KNEE LT 3V AP,LAT,YUSUF from 09/23/2022 CR XR KNEE LT 2V AP,LAT from 03/08/2024 FINDINGS: BONES: There are stable post operative changes of a left total knee arthroplasty present. No fractur e or dislocation. Stable benign-appearing lesion in the distal femoral metaphysis. JOINTS: The orthopedic hardware is in good position. No evidence of hardware loosening. SOFT TISSUE: Normal. IMPRESSION: Stable left total knee arthroplasty. DATA REPOSITORY: RADIATION DOSE DELIVERED:
== END 2024-05-07 09:24 | disposition home or self-care (01) ==
LOC: DIORS 09:24
PROVIDERS: PCP Nurse Practitioner Adult Health; Referring Provider Nurse Practitioner Adult Health; Visit Provider Physician Assistant
DX: S80.02XD Contusion of left knee, subsequent encounter; V89.2XXD Person injured in unspecified motor-vehicle accident, traffic, subsequent encounter; Z96.652 Presence of left artificial knee joint
CPT/HCPCS: 73562; 99213

== ENCOUNTER → 2024-06-14 10:20 | Outpatient (BNVA) | payer MEDICARE, SELFPAY | PROVIDERS: PCP Nurse Practitioner Adult Health; Referring Provider Nurse Practitioner Adult Health; Visit Provider Student in an Organized Health Care Education/Training Program | DX: S80.02XD Contusion of left knee, subsequent encounter (principal); V89.2XXD Person injured in unspecified motor-vehicle accident, traffic, subsequent encounter; Z96.653 Presence of artificial knee joint, bilateral | CPT/HCPCS: 99213 ==

== ENCOUNTER 2024-08-30 02:02 | Outpatient (CLI) | payer MEDICARE, SELFPAY ==
[2024-08-30 09:44] LABS: Anion Gap 10.3 mmol/L (3-11); BUN 16 mg/dL (7-18); CO2 26.7 mmol/L (21.0-32.0); CREATININE 0.9 mg/dL (0.55-1.02); Calcium 9.6 mg/dL (8.5-10.1); Chloride 107 mmol/L (98-107); Glucose 87 mg/dL (74-106); Potassium 4.5 mmol/L (3.5-5.1); Sodium 144 mmol/L (136-145)
== END 2024-08-30 02:03 | disposition home or self-care (01) ==
PROVIDERS: PCP Nurse Practitioner Adult Health; Referring Provider Nurse Practitioner Adult Health; Visit Provider Nurse Practitioner Adult Health
DX: I10 Essential (primary) hypertension (principal)
CPT/HCPCS: 36415; 80048

== ENCOUNTER 2024-12-06 09:28 | Outpatient (CLI) | payer MEDICARE, SELFPAY ==
--- NOTE | 2024-12-06 09:15 | DI.RAD_ITS ---
Exam(s) XR HIP RT AP LAT ONLY EXAM: XR HIP RT AP LAT ONLY CLINICAL HISTORY: ANNUAL F/U R TIMMY. TECHNIQUE: 2D digital imaging was performed. COMPARISON: CR XR HIP RT COMPLETE AP PELVIS from 12/15/2023 FINDINGS: Two views There remain satisfactory position alignment of the components of the right hip prosthesis. No fract ure or loosening evident. Advanced degenerative changes in the opposite-left hip appear unchanged from last year. IMPRESSION: Stable satisfactory appearance of right hip prosthesis components. DATA REPOSITORY: RADIATION DOSE DELIVERED:
== END 2024-12-06 09:29 | disposition home or self-care (01) ==
LOC: DIORS 09:28
PROVIDERS: PCP Nurse Practitioner Adult Health; Referring Provider Nurse Practitioner Adult Health; Visit Provider Student in an Organized Health Care Education/Training Program
DX: M25.351 Other instability, right hip (principal); M76.891 Other specified enthesopathies of right lower limb, excluding foot; Z96.641 Presence of right artificial hip joint
CPT/HCPCS: 99213; 73502